=== PATIENT | female | born 1970 | race Caucasian/White ===

== ENCOUNTER → 2016-05-26 | Outpatient (CLI) | payer BC ==
--- NOTE | 2016-05-27 07:55 | MM ---
Reason for exam: screening (asymptomatic). Last mammogram was performed 1 year ago. History: Patient is nulliparous. Taking hormonal contraceptives for 23 years beginning at age 20. Physical Findings: A clinical breast exam by your physician is recommended on an annual basis and results should be correlated with mammographic findings. MG 3D Screening Mammo W/Cad Bilateral CC and MLO view(s) were taken. Prior study comparison: May 25, 2015, bilateral MG 3d screening mammo w/cad. May 22, 2014, bilateral MG screening mammo w CAD. The breast tissue is heterogeneously dense. This may lower the sensitivity of mammography. No significant changes when compared with prior studies. ASSESSMENT: Benign, BI-RAD 2 RECOMMENDATION: Routine screening mammogram of both breasts in 1 year.
== END | disposition home or self-care (01) ==
LOC: RADMAMWWP 06:50
PROVIDERS: ATTEND Obstetrics & Gynecology
DX: Z12.31 Encounter for screening mammogram for malignant neoplasm of breast (principal)
CPT/HCPCS: 77063; G0202

== ENCOUNTER → 2017-01-18 | Outpatient (CLI) | payer BC ==
[2017-01-18 08:16] LABS: ALT 28 U/L (9-52); AST 20 U/L (14-36); Alkaline Phosphatase 63 U/L (38-126); Blood Urea Nitrogen 13 mg/dL (7-17); Calcium 9.5 mg/dL (8.4-10.2); Carbon Dioxide 24 mmol/L (22-30); Cholesterol 124 mg/dL (<200); Glucose 85 mg/dL (74-99); HDL Cholesterol 44 mg/dL (40-60); Non-African American GFR(MDRD) 59 (>60 ml/min/1.73 sqM); Potassium 4.2 mmol/L (3.5-5.1); Sodium 140 mmol/L (137-145); Total Bilirubin 0.5 mg/dL (0.2-1.3); Total Protein 7.2 g/dL (6.3-8.2)
[2017-01-18 08:27] LABS: Anion Gap 11 mmol/L; Chloride 105 mmol/L (98-107)
== END | disposition home or self-care (01) ==
LOC: LABWHC1 07:21
PROVIDERS: ATTEND Internal Medicine Interventional Cardiology
DX: E78.2 Mixed hyperlipidemia (principal)
CPT/HCPCS: 36415; 80053; 80061

== ENCOUNTER → 2017-05-29 | Outpatient (CLI) | payer BC ==
--- NOTE | 2017-05-30 11:33 | MM ---
Reason for exam: screening (asymptomatic). Last mammogram was performed 1 year ago. History: Patient is nulliparous. Taking hormonal contraceptives for 24 years beginning at age 20. Physical Findings: A clinical breast exam by your physician is recommended on an annual basis and results should be correlated with mammographic findings. MG 3D Screening Mammo W/Cad Bilateral CC and MLO view(s) were taken. Prior study comparison: May 26, 2016, bilateral MG 3d screening mammo w/cad. May 25, 2015, bilateral MG 3d screening mammo w/cad. The breast tissue is heterogeneously dense. This may lower the sensitivity of mammography. There is chronic nodularity in the right breast. There is no dominant lesion. No significant changes when compared with prior studies. ASSESSMENT: Benign, BI-RAD 2 RECOMMENDATION: Routine screening mammogram of both breasts in 1 year.
== END | disposition home or self-care (01) ==
LOC: RADMAMWWP 06:59
PROVIDERS: ATTEND Obstetrics & Gynecology
DX: Z12.31 Encounter for screening mammogram for malignant neoplasm of breast (principal)
CPT/HCPCS: 77063; 77067

== ENCOUNTER → 2018-03-20 | Outpatient (CLI) | payer BC ==
[2018-03-20 08:24] LABS: HGB 12.4 gm/dL (11.4-16.0); MCH 34.3 pg (25.0-35.0); MCHC 33.5 g/dL (31.0-37.0); MCV 102.2 fL (80.0-100.0); Macrocytosis Slight; Mean Platelet Volume 6.7; Platelet Count 246 k/uL (150-450); RBC 3.62 m/uL (3.80-5.40); RDW 13.4 % (11.5-15.5); WBC 6.3 k/uL (3.8-10.6)
[2018-03-20 16:56] LABS: LDL Cholesterol,Calculated 65.8 mg/dL (0.0-131.0); VLDL Calculation 25.2 mg/dL (5.00-40.00)
== END | disposition home or self-care (01) ==
LOC: LABWHC1 07:46
PROVIDERS: ATTEND Obstetrics & Gynecology
DX: Z13.220 Encounter for screening for lipoid disorders (principal); Z13.1 Encounter for screening for diabetes mellitus
CPT/HCPCS: 36415; 80061; 82947; 85027

== ENCOUNTER → 2018-05-31 | Outpatient (CLI) | payer BC ==
--- NOTE | 2018-06-01 08:14 | MM ---
Reason for exam: screening (asymptomatic). Last mammogram was performed 1 year ago. History: Patient is nulliparous. Taking hormonal contraceptives for 24 years beginning at age 20. Physical Findings: A clinical breast exam by your physician is recommended on an annual basis and results should be correlated with mammographic findings. MG 3D Screening Mammo W/Cad Bilateral CC and MLO view(s) were taken. Prior study comparison: May 29, 2017, bilateral MG 3d screening mammo w/cad. May 26, 2016, bilateral MG 3d screening mammo w/cad. No significant changes when compared with prior studies. ASSESSMENT: Benign, BI-RAD 2 RECOMMENDATION: Routine screening mammogram of both breasts in 1 year.
== END | disposition home or self-care (01) ==
LOC: RADMAMWWP 06:49
PROVIDERS: ATTEND Obstetrics & Gynecology
DX: Z12.31 Encounter for screening mammogram for malignant neoplasm of breast (principal)
CPT/HCPCS: 77063; 77067

== ENCOUNTER → 2019-04-09 | Outpatient (CLI) | payer BC ==
[2019-04-09 11:03] LABS: HCT 35.2 % (34.0-46.0); HGB 11.8 gm/dL (11.4-16.0); MCH 33.6 pg (25.0-35.0); MCHC 33.5 g/dL (31.0-37.0); MCV 100.6 fL (80.0-100.0); Mean Platelet Volume 7.5; Platelet Count 206 k/uL (150-450); RDW 13.2 % (11.5-15.5); WBC 7.6 k/uL (3.8-10.6)
[2019-04-09 16:31] LABS: African American GFR (CKD) 76.6 (60.0-200.0); Albumin 4.4 g/dL (3.80-4.90); Albumin/Globulin Ratio 2.32 (1.60-3.17); Anion Gap 6.3 mmol/L (4.00-12.00); Carbon Dioxide 25.7 mmol/L (21.6-31.8); Chol/HDL Ratio 3.02; Globulin 1.9 g/dL (1.6-3.3); LDL Cholesterol,Calculated 67.2 mg/dL (0.0-131.0); Non-African American GFR(CKD) 66.1 (60.0-200.0); Potassium 3.8 mmol/L (3.5-5.5); Total Bilirubin 0.4 mg/dL (0.3-1.2); Total Protein 6.3 g/dL (6.2-8.2); VLDL Calculation 23.8 mg/dL (5.00-40.00)
== END | disposition home or self-care (01) ==
LOC: LABWHC1 10:15
PROVIDERS: ATTEND Internal Medicine Interventional Cardiology
DX: I10 Essential (primary) hypertension (principal); Z13.220 Encounter for screening for lipoid disorders
CPT/HCPCS: 36415; 80053; 80061; 85027

== ENCOUNTER → 2019-09-11 | Outpatient (CLI) | payer BC ==
--- NOTE | 2019-09-12 09:39 | MM ---
Reason for exam: screening (asymptomatic). Last mammogram was performed 1 year and 3 months ago. History: Patient is nulliparous. Taking hormonal contraceptives for 24 years beginning at age 20. Physical Findings: A clinical breast exam by your physician is recommended on an annual basis and results should be correlated with mammographic findings. MG 3D Screening Mammo W/Cad Bilateral CC and MLO view(s) were taken. Prior study comparison: May 31, 2018, bilateral MG 3d screening mammo w/cad. May 29, 2017, bilateral MG 3d screening mammo w/cad. The breast tissue is heterogeneously dense. This may lower the sensitivity of mammography. No suspicious abnormality. No significant changes when compared with prior studies. ASSESSMENT: Negative, BI-RAD 1 RECOMMENDATION: Routine screening mammogram of both breasts in 1 year.
== END | disposition home or self-care (01) ==
LOC: RADMAMWWP 16:13
PROVIDERS: ATTEND Obstetrics & Gynecology
DX: Z12.31 Encounter for screening mammogram for malignant neoplasm of breast (principal)
CPT/HCPCS: 77063; 77067

== ENCOUNTER → 2020-09-16 | Outpatient (CLI) | payer BC ==
[2020-09-16 13:23] LABS: HCT 22.1 % (37.2-46.3); HGB 7.2 g/dL (12.0-15.0); MCHC 32.6 g/dL (32.0-37.0); MCV 107.3 fL (80.0-97.0); Platelet Count 45 X 10*3/uL (140-440); RBC 2.06 X 10*6/uL (4.10-5.20); RDW 16.6 % (11.5-14.5); WBC 8.42 X 10*3/uL (4.50-10.00)
[2020-09-17 03:19] LABS: T4, Free (Free Thyroxine) 1.1 ng/dL (0.80-1.80)
[2020-09-17 04:03] LABS: African American GFR (CKD) 86.4 (60.0-200.0); Albumin 4.4 g/dL (3.80-4.90); Albumin/Globulin Ratio 1.91 (1.60-3.17); Anion Gap 7.5 mmol/L (4.00-12.00); BUN/Creat Ratio 16.67 Ratio (12.00-20.00); Calcium 9.3 mg/dL (8.7-10.3); Carbon Dioxide 25.5 mmol/L (21.6-31.8); Chol/HDL Ratio 3.33; Globulin 2.3 g/dL (1.6-3.3); LDL Cholesterol,Calculated 63.6 mg/dL (0.0-131.0); Non-African American GFR(CKD) 74.6 (60.0-200.0); Potassium 3.9 mmol/L (3.5-5.5); Total Bilirubin 0.6 mg/dL (0.3-1.2); Total Protein 6.7 g/dL (6.2-8.2); VLDL Calculation 20.4 mg/dL (5.00-40.00)
== END | disposition home or self-care (01) ==
LOC: LABWHC1 07:22
PROVIDERS: ATTEND Obstetrics & Gynecology
DX: Z13.220 Encounter for screening for lipoid disorders (principal)
CPT/HCPCS: 36415; 80053; 80061; 84439; 84443; 84479; 85027

== ENCOUNTER → 2020-09-22 | Outpatient (CLI) | payer BC ==
--- NOTE | 2020-09-22 11:40 | BD ---
EXAMINATION TYPE: Axial Bone Density DATE OF EXAM: 09/22/2020 COMPARISON: NONE CLINICAL HISTORY: Height: 5 FT 6 1/2 IN Weight: 135 FRAX RISK QUESTIONS: Alcohol (3 or more units per day): NO Family History (Parent hip fracture): NO Glucocorticoids (More than 3mos): NO (Ex: prednisone, prednisolone, methylprednisolone, dexamethasone, and hydrocortisone). History of Fracture in Adulthood: NO Secondary Osteoporosis: 1. Type 1 Diabetes: NO 2. Hyperthyroidism: NO 3. Menopause before 45: NO 4. Malnutrition: NO 5. Chronic liver disease: NO Rheumatoid Arthritis: NO Current Tobacco Use: NO RISK FACTORS HISTORY OF: Surgery to Spine/Hip(right/left)/Wrist (right/left): NO Family History of Osteoporosis: NO Active: YES Diet low in dairy products/other sources of calcium: NO Postmenopausal woman: LMP 05.23.21 If Premenopausal, do you have irregular periods: NO Take estrogen and/or progesterone medications: NO Lost more than 2 inches in height since high school: NO MEDICATIONS: Additional Medications: AMLODIPINE, CLARITIN,VIT D Additional History: EXAM MEASUREMENTS: Bone mineral densitometry was performed using the [employer] System. Bone mineral density as measured about the Lumbar spine is: ----- L1-L4(G/cm2): 1.398 T Score Values are as follows: ----- L2: 2.3 ----- L3: 2.6 ----- L4: 1.1 ----- L1-L4: 1.8 BASELINE Bone mineral density about the R hip (g/cm2): 1.040 Bone mineral density about the L hip (g/cm2): 1.062 T Score values are as follows: -----R Neck: 0.0 -----L Neck: 0.2 -----R Total: 0.9 -----L Total: 1.1 BASELINE IMPRESSION: Normal (Values between +1 and -1 indicate normal bone mass). Consider repeating this study in 5 year s or sooner if there is some new clinical indication. NOTE: T-SCORE=SD OF THE YOUNG ADULT MEAN.
--- NOTE | 2020-09-23 13:45 | MM ---
Reason for exam: screening (asymptomatic). Last mammogram was performed 1 year ago. History: Patient is nulliparous. Took hormonal contraceptives for 30 years beginning at age 20. Physical Findings: A clinical breast exam by your physician is recommended on an annual basis and results should be correlated with mammographic findings. MG 3D Screening Mammo W/Cad Bilateral CC and MLO view(s) were taken. Prior study comparison: September 11, 2019, bilateral MG 3d screening mammo w/cad. May 31, 2018, bilateral MG 3d screening mammo w/cad. The breast tissue is heterogeneously dense. This may lower the sensitivity of mammography. There is no discrete abnormality. ASSESSMENT: Negative, BI-RAD 1 RECOMMENDATION: Routine screening mammogram of both breasts in 1 year.
== END | disposition home or self-care (01) ==
LOC: RADMAMWWP 06:58
PROVIDERS: ATTEND Obstetrics & Gynecology
DX: Z12.31 Encounter for screening mammogram for malignant neoplasm of breast (principal); Z13.820 Encounter for screening for osteoporosis
CPT/HCPCS: 77063; 77067; 77080

== ENCOUNTER 2020-09-29 06:09 | Day surgery (SDC) | payer BC ==
[2020-09-28 09:42] VITALS: BMI 21.1
[~2020-09-29 06:09] MED LIST: LACTATED RINGERS 1,000 ML IV SCH; LIDOCAINE 1% (10MG/ML) FOR IV START INTRADERMA PRN
[2020-09-29] MEDS ORDERED: ONDANSETRON 4 MG/2 ML VIAL ONE (06:51)
[2020-09-29] MEDS ORDERED: PROPOFOL 10 MG/ML 20 ML VIAL IV ONE (07:06)
[2020-09-29 07:31] VITALS: RESP 16
[2020-09-29 07:40] VITALS: BP 107/59
[2020-09-29 07:57] LABS: Anisocytosis Moderate; HCT 28.9 % (34.0-46.0); HGB 9.4 gm/dL (11.4-16.0); MCH 31.6 pg (25.0-35.0); MCHC 32.5 g/dL (31.0-37.0); MCV 97.2 fL (80.0-100.0); Macrocytosis Slight; Mean Platelet Volume 9.5; Platelet Count 44 k/uL (150-450); RBC 2.98 m/uL (3.80-5.40); RDW 20.1 % (11.5-15.5); Reticulocyte % 2.5 % (0.5-2.0); WBC 7.5 k/uL (3.8-10.6)
[2020-09-29 08:39] LABS: Band Neutrophils % 2 %; Metamyelocytes # (M) 0.08 k/uL (0); Metamyelocytes % 1 %; Neutrophils % (M) 27 %; Nucleated Red Blood Cells 0 /100 WBC (0-0); Total Cells Counted 200
--- NOTE | 2020-09-29 11:47 | PCN ---
PROCEDURE NOTE DATE OF PROCEDURE: 09/29/2020. PREOP DIAGNOSIS: Pancytopenia. POSTOP DIAGNOSIS: Pancytopenia. PROCEDURE: Bone marrow aspirate and biopsy site right iliac crest. ANESTHESIA: Local with IV systemic sedation. DETAILS: Utilizing sterile technique, the skin overlying the right iliac crest was prepared with Betadine and alcohol. After adequate sterile draping and local anesthesia, a size 11-4 inches Jamshidi needle was utilized to access the periosteum with ease. A total of 15 mL of aspirate as well as 4 cm bone core biopsies were obtained. The patient tolerated the procedure very well. There was no immediate procedure related complication. TOTAL BLOOD LOSS: Less than 1 mL. Results pending. MMODL / IJN: [id number] /
== END 2020-09-29 08:00 | disposition home or self-care (01) ==
LOC: OR 06:09
PROVIDERS: ATTEND Internal Medicine Hematology & Oncology
DX: D61.818 Other pancytopenia (principal); D53.9 Nutritional anemia, unspecified; Z79.899 Other long term (current) drug therapy; Z88.1 Allergy status to other antibiotic agents; Z88.0 Allergy status to penicillin; Z88.2 Allergy status to sulfonamides; I10 Essential (primary) hypertension; Z98.890 Other specified postprocedural states; Z86.19 Personal history of other infectious and parasitic diseases
CPT/HCPCS: 81025; 85025; 85045; 38222; J2405; J2704

== ENCOUNTER → 2020-10-10 | Outpatient (CLI) | payer BC ==
--- NOTE | 2020-10-12 10:21 | PE ---
EXAMINATION TYPE: PET CT fusion skull to thigh DATE OF EXAM: 10/10/2020 CLINICAL HISTORY: 50-year-old female C85.85, bone marrow biopsy on 09/29/2020 with diagnosis of lympho ma and 10/02/2020. Initial staging. TECHNIQUE: Following the intravenous administration of 11.32 mCi F-18 FDG mCi of F-18 FDG, whole bod y images are performed from the skull base to the midthigh. Images are reviewed on the computer in t he coronal, axial, and sagittal planes. Reconstructed rotating images are created on independent wor kstation and reviewed on the computer. A localization and attenuation correction CT is performed in conjunction with the PET scan. Glucose level: 98 mg/dL Injection site: Right AC COMPARISON: None. FINDINGS: PET: Very mild increased uptake within the parotid and submandibular glands, max SUV 2.8. Otherwise, ph ysiologic FDG uptake within the neck. 4 mm anterior right upper lobe pulmonary nodule, axial image 72. This is too small for adequate filipe cterization. Otherwise, physiologic FDG uptake within the chest. Average liver SUV 1.7 Otherwise, physiologic FDG uptake within the abdomen. Round masslike area measuring 6.7 cm in the posterior pelvis, probably a retroverted uterus, only mil d uptake here, max SUV 2.0. Questionable 2.0 cm round hypodense area right adnexa. Either a fluid-filled loop of bowel or related to the right ovary. Max SUV 4.8. 1.5 cm lymph node left external iliac chain, max SUV 4.5. Mild generalized increased marrow uptake, for example, max SUV of 2.6 and 2.5 in the pelvis and proxi mal femurs, respectively. ATTENUATION CORRECTION CT: Visualized paranasal sinuses and mastoid air cells appear clear. Orotracheal colon is clear. No cervi adithya lymphadenopathy by size criteria. Heart upper limits of normal size without pericardial effusion. Aorta normal caliber with a bovine co nfiguration to the aortic arch. No thoracic lymphadenopathy by CT size criteria. Mild diffuse bronchi al wall thickening bronchitis or chronic asthma. Mild dependent atelectasis. Minimal biapical pleural parenchymal scarring. Spleen measures 11.0 cm on axial series. No dilated small bowel, free fluid, or free air. No mesenter ic or retroperitoneal lymphadenopathy. Normal appendix. Mild to moderate stool burden. No pericolonic inflammatory change. No osseous destructive process. IMPRESSION: 1. An enlarged 1.5 cm left external iliac chain lymph node shows moderate uptake, max SUV 4.5. 2. A small focal area of moderate uptake in the right adnexa could be associated with the right ovary or a short segment of fluid-filled small bowel. Consider pelvic ultrasound to exclude any underlying lesion within the right ovary. 3. A rounded masslike area measuring 6.7 cm in the posterior pelvis, probably a retroverted uterus. N o significant uptake here. The pelvic ultrasound can better characterize this finding as well. 4. Very mild generalized increased marrow uptake, max SUV 2.6 (background liver uptake being 1.7). Ot herwise, no other focal abnormal uptake is identified. 5. A 4 mm nonspecific right upper lobe pulmonary nodule can be reassessed at a 6-12 month follow-up C T.
== END | disposition home or self-care (01) ==
LOC: RADPETMAIN 08:57
PROVIDERS: ATTEND Internal Medicine Hematology & Oncology
DX: C85.85 Other specified types of non-Hodgkin lymphoma, lymph nodes of inguinal region and lower limb (principal); R91.1 Solitary pulmonary nodule
CPT/HCPCS: 78815; A9552

== ENCOUNTER 2021-01-18 20:44 | Observation (INO) | payer BC ==
--- NOTE | 2021-01-18 23:16 | XR ---
EXAMINATION TYPE: XR KUB DATE OF EXAM: 01/18/2021 COMPARISON: NONE HISTORY: Abdominal pain TECHNIQUE: 2 views upright FINDINGS: Bowel gas pattern is normal. There is no sign of intestinal obstruction or pneumoperitoneum . Fecal pattern is normal. There is no sign of a mass. Lung bases are clear. There are no pathologic calcifications over the kidneys. IMPRESSION: Nonacute abdomen.
[2021-01-18 23:37] LABS: Basophils % (A) 0 %; Eosinophils # (A) 0.2 k/uL (0-0.7); Eosinophils % (A) 3 %; Hyperchromasia Slight; Lymphocytes # (A) 0.1 k/uL (1.0-4.8); Lymphocytes % (A) 1 %; MCH 37.1 pg (25.0-35.0); MCV 103.1 fL (80.0-100.0); Macrocytosis Slight; Mean Platelet Volume 7.8; Monocytes # (A) 0.4 k/uL (0-1.0); Monocytes % (A) 5 %; Neutrophils # (A) 7.5 k/uL (1.3-7.7); Neutrophils % (A) 91 %; Platelet Count 128 k/uL (150-450); Poikilocytosis Slight; RBC 3.78 m/uL (3.80-5.40); RDW 13.7 % (11.5-15.5); WBC 8.2 k/uL (3.8-10.6)
[2021-01-18] MEDS ORDERED: SODIUM CHLORIDE 0.9% 1,000 ML IV ONE (23:37)
[2021-01-18] MEDS ORDERED: MORPHINE SULFATE 4 MG/ML SYRINGE IV STA (23:37)
[2021-01-18 23:41] LABS: Appearance,Urine Clear (Clear); Bilirubin,Urine Negative (Negative); Blood,Urine Negative (Negative); Color,Urine Yellow; Glucose,Urine (UA) Negative (Negative); Ketones,Urine Negative (Negative); Leukocyte Esterase,Urine Negative (Negative); Nitrite,Urine Negative (Negative); Protein,Urine Negative (Negative); Specific Gravity,Urine 1.016 (1.001-1.035); Urobilinogen,Urine <2.0 mg/dL (<2.0)
[2021-01-18 23:50] LABS: ALT 17 U/L (4-34); AST 23 U/L (14-36); African American GFR (CKD) >90 (>60 ml/min/1.73 sqM); Albumin 5.1 g/dL (3.5-5.0); Alkaline Phosphatase 77 U/L (38-126); Amylase 118 U/L (30-110); Anion Gap 11 mmol/L; Blood Urea Nitrogen 14 mg/dL (7-17); Calcium 10.1 mg/dL (8.4-10.2); Carbon Dioxide 25 mmol/L (22-30); Chloride 97 mmol/L (98-107); Glucose 110 mg/dL (74-99); Lipase 92 U/L (23-300); Non-African American GFR(CKD) 89 (>60 ml/min/1.73 sqM); Potassium 4.1 mmol/L (3.5-5.1); Sodium 133 mmol/L (137-145); Total Bilirubin 1.2 mg/dL (0.2-1.3); Total Protein 7.7 g/dL (6.3-8.2)
--- NOTE | 2021-01-19 01:29 | CT ---
EXAMINATION TYPE: CT abdomen pelvis wo con DATE OF EXAM: 01/19/2021 COMPARISON: 10/10/2020 HISTORY: medial abd pain with diarrhea. pt has non-bacon lymphoma CT DLP: 387.3 mGycm Automated exposure control for dose reduction was used. Images obtained from the diaphragm to the floor the pelvis with no contrast. Lung bases show mild subsegmental atelectasis. Heart size is normal. There is no pericardial effusion . Liver and spleen are intact. The bile ducts are not dilated. There is no evidence of pancreatic mass. Gallbladder appears normal. There is no adrenal mass. Kidneys have normal size and contour. There is no hydronephrosis. Ureters a re not dilated. There is no retroperitoneal adenopathy. Bladder distends smoothly. There is no inguin al hernia. There is retroverted uterus noted. There is no free fluid in the pelvis. There is fat stranding in the right lower quadrant with thickened fluid-filled appendix. Appendix mariana sures up to 12 mm. There is small amount of fluid in the right paracolic gutter. There appendicoliths . There is no ascites or free air. There is no bowel obstruction. There is no mesenteric edema. The lumbar vertebra have normal alignment. There is no compression fracture. Posterior elements are i ntact. Bony pelvis is intact. Hip joints are intact. IMPRESSION: Inflammatory changes in the right lower quadrant with thickened posterior appendix related to acute a ppendicitis. There are appendicoliths. Inflammatory changes are new compared to old exam.
[2021-01-19] MEDS ORDERED: MORPHINE SULFATE 4 MG/ML SYRINGE IV STA (02:04)
[2021-01-19] MEDS ORDERED: ONDANSETRON 4 MG/2 ML VIAL IVP STA (02:04)
[2021-01-19] MEDS ORDERED: CEFEPIME 2 GM in SODIUM CHLORIDE 0.9% 100 ML IVPB STA (02:05)
[2021-01-19] MEDS ORDERED: NALOXONE 0.4 MG/ML 1 ML VIAL IV PRN (02:28)
[2021-01-19] MEDS: SODIUM CHLORIDE 0.9% 1,000 ML IV SCH ×4 (03:14→20:52)
[2021-01-19] MEDS: MORPHINE SULFATE 4 MG/ML SYRINGE IV PRN ×3 (06:59→17:50)
[2021-01-19] MEDS: ONDANSETRON 4 MG/2 ML VIAL IVP PRN ×2 (07:01→14:34)
[2021-01-19] MEDS: PANTOPRAZOLE 40 MG/10 ML VIAL IV SCH (07:57)
[2021-01-19] MEDS: LEVOFLOXACIN 500MG-D5W PMX 500 MG in DEXTROSE/WATER 1 100ML.BAG IVPB SCH (10:19)
[2021-01-19] MEDS: metroNIDAZOLE-NS PMX 500 MG in SALINE 1 100ML.BAG IVPB SCH ×2 (11:27→18:22)
--- NOTE | 2021-01-19 13:01 | P.GSHP ---
<Smita Perez - Last Filed: 01/19/21 12:56> History of Present Illness H&P Date: 01/19/21 CHIEF COMPLAINT: Abdominal pain HISTORY OF PRESENT ILLNESS: This is a 51-year-old female with a known history of non-Hodgkin's lymphoma and hypertension. Her last chemotherapy treatment for her non-Hodgkin's was last week. Patient presents to the hospital with complaints of mid abdominal pain and right lower quadrant pain that started yesterday afternoon after lunch. She she did vomit yesterday as well had an episode of diarrhea. She's been having chills and sweats. Denies any fever. She had a computed tomography scan of the abdomen and pelvis completed showing inflammatory changes in the right lower quadrant with thickened posterior appendix related to acute appendicitis. There are appendicoliths. Inflammatory changes are new compared to old exam. Patient admitted to the hospital for acute appendicitis. PAST MEDICAL HISTORY: See list. PAST SURGICAL HISTORY: Ovarian cyst removal MEDICATIONS: See list. ALLERGIES: See list. SOCIAL HISTORY: No illicit drug use. REVIEW OF SYSTEMS: CONSTITUTIONAL: Denies fever or chills. HEENT: Denies blurred vision, vision changes, or eye pain. Denies hemoptysis CARDIOVASCULAR: Denies chest pain or pressure. RESPIRATORY: No shortness of breath. GASTROINTESTINAL: See HPI for pertinent findings HEMATOLOGIC: Denies bleeding disorders. GENITOURINARY: Denies any blood in urine or increased urinary frequency. SKIN: Denies pruitis. Denies rash. PHYSICAL EXAM: VITAL SIGNS: Reviewed GENERAL: Well-developed in no acute distress. HEENT: No sclera icterus. Extraocular movements grossly intact. Moist buccal mucosa. Head is atraumatic, normocephalic. No nasal drainage. ABDOMEN: Soft. Nondistended. There is palpation of the mid abdomen and right lower quadrant NEUROLOGIC: Alert and oriented. Cranial nerves II through XII grossly intact. LABORATORY DATA: WBC is 8.2 hemoglobin 14 platelets 128 Sodium 133 potassium 4.1 chloride 97 BUN 14 creatinine 0.78 glucose 110 LFTs normal Lipase normal Urinalysis negative for infection Urine HCG not detected COVID-19 not detected IMAGING: CAT scans findings as stated above ASSESSMENT: 1. Acute appendicitis PLAN: -Patient scheduled for laparoscopic appendectomy today with Dr. Kelly -Keep patient nothing by mouth -Continue IV antibiotics -Continue IV fluids -Continue pain medication as needed -Continue antiemetics as needed Physician Welding Specialist note has been reviewed by physician. Signing provider agrees with the documented findings, assessment, and plan of care. Past Medical History Past Medical History: Cancer, Hypertension Additional Past Medical History / Comment(s): received both moderna vaccines,low red blood cells and platelets-having blood transfusion on 09-28-20. NON HODKINS LYMPHOMA History of Any Multi-Drug Resistant Organisms: None Reported Additional Past Surgical History / Comment(s): ovarian cyst removal. BONE MARROW BIOPSY Past Anesthesia/Blood Transfusion Reactions: Postoperative Nausea & Vomiting (PONV) Past Psychological History: No Psychological Hx Reported Smoking Status: Never smoker Past Alcohol Use History: Occasional Past Drug Use History: None Reported - Past Family History Mother Family Medical History: No Reported History, Hypertension Father Family Medical History: Hypertension Medications and Allergies Home Medications Medication Instructions Recorded Confirmed Type amLODIPine [Norvasc] 5 mg PO DAILY 06/28/14 01/19/21 History Cholecalciferol [Vitamin D3 (25 25 mcg PO Q3D 09/28/20 01/19/21 History Mcg = 1000 Iu)] Prochlorperazine [Compazine] 5 mg PO Q8HR PRN 01/19/21 01/19/21 History ondansetron HCL [Zofran] 8 mg PO Q8H PRN 01/19/21 01/19/21 History Allergies Allergy/AdvReac Type Severity Reaction Status Date / Time clarithromycin [From Biaxin] Allergy Swelling Verified 01/19/21 07:41 Penicillins Allergy Swelling Verified 01/19/21 07:41 Sulfa (Sulfonamide Allergy Unknown Verified 01/19/21 07:41 Antibiotics) Childhood Surgical - Exam Vital Signs Temp Pulse Resp BP Pulse Ox 98.1 F 74 18 130/83 100 01/18/21 21:47 01/18/21 21:47 01/18/21 21:47 01/18/21 21:47 01/18/21 21:47 Results - Labs 01/18/21 23:21 01/18/21 23:21 Abnormal Lab Results - Last 24 Hours (Table) 01/18/21 01/18/21 Range/Units 23:21 23:21 RBC 3.78 L (3.80-5.40) m/uL MCV 103.1 H (80.0-100.0) fL MCH 37.1 H (25.0-35.0) pg Plt Count 128 L (150-450) k/uL Lymphocytes # 0.1 L (1.0-4.8) k/uL Sodium 133 L (137-145) mmol/L Chloride 97 L (98-107) mmol/L Glucose 110 H (74-99) mg/dL Albumin 5.1 H (3.5-5.0) g/dL Amylase 118 H (30-110) U/L Diabetes panel 01/18/21 Range/Units 23:21 Sodium 133 L (137-145) mmol/L Potassium 4.1 (3.5-5.1) mmol/L Chloride 97 L (98-107) mmol/L Carbon Dioxide 25 (22-30) mmol/L BUN 14 (7-17) mg/dL Creatinine 0.78 (0.52-1.04) mg/dL Glucose 110 H (74-99) mg/dL Calcium 10.1 (8.4-10.2) mg/dL AST 23 (14-36) U/L ALT 17 (4-34) U/L Alkaline Phosphatase 77 (38-126) U/L Total Protein 7.7 (6.3-8.2) g/dL Albumin 5.1 H (3.5-5.0) g/dL Calcium panel 01/18/21 Range/Units 23:21 Calcium 10.1 (8.4-10.2) mg/dL Albumin 5.1 H (3.5-5.0) g/dL Pituitary panel 01/18/21 Range/Units 23:21 Sodium 133 L (137-145) mmol/L Potassium 4.1 (3.5-5.1) mmol/L Chloride 97 L (98-107) mmol/L Carbon Dioxide 25 (22-30) mmol/L BUN 14 (7-17) mg/dL Creatinine 0.78 (0.52-1.04) mg/dL Glucose 110 H (74-99) mg/dL Calcium 10.1 (8.4-10.2) mg/dL Adrenal panel 01/18/21 Range/Units 23:21 Sodium 133 L (137-145) mmol/L Potassium 4.1 (3.5-5.1) mmol/L Chloride 97 L (98-107) mmol/L Carbon Dioxide 25 (22-30) mmol/L BUN 14 (7-17) mg/dL Creatinine 0.78 (0.52-1.04) mg/dL Glucose 110 H (74-99) mg/dL Calcium 10.1 (8.4-10.2) mg/dL Total Bilirubin 1.2 (0.2-1.3) mg/dL AST 23 (14-36) U/L ALT 17 (4-34) U/L Alkaline Phosphatase 77 (38-126) U/L Total Protein 7.7 (6.3-8.2) g/dL Albumin 5.1 H (3.5-5.0) g/dL <Vladimir Kelly - Last Filed: 01/19/21 13:02> History of Present Illness As above. Patient with CAT scan findings and abdominal exam consistent with a cute appendicitis of moderate degree. Patient currently undergoing chemotherapy for lymphoma. Case was reviewed with her oncologist. We'll proceed with laparoscopic, possible open appendectomy at this time. Risks of bleeding, infection, abscess, bladder bowel and ureteral injury, hernia, conversion to an open procedure reviewed. She understands and wishes to proceed. Surgical - Exam Vital Signs Temp Pulse Resp BP Pulse Ox 98.1 F 74 18 130/83 100 01/18/21 21:47 01/18/21 21:47 01/18/21 21:47 01/18/21 21:47 01/18/21 21:47 Results - Labs 01/18/21 23:21 01/18/21 23:21 Abnormal Lab Results - Last 24 Hours (Table) 01/18/21 01/18/21 Range/Units 23:21 23:21 RBC 3.78 L (3.80-5.40) m/uL MCV 103.1 H (80.0-100.0) fL MCH 37.1 H (25.0-35.0) pg Plt Count 128 L (150-450) k/uL Lymphocytes # 0.1 L (1.0-4.8) k/uL Sodium 133 L (137-145) mmol/L Chloride 97 L (98-107) mmol/L Glucose 110 H (74-99) mg/dL Albumin 5.1 H (3.5-5.0) g/dL Amylase 118 H (30-110) U/L Diabetes panel 01/18/21 Range/Units 23:21 Sodium 133 L (137-145) mmol/L Potassium 4.1 (3.5-5.1) mmol/L Chloride 97 L (98-107) mmol/L Carbon Dioxide 25 (22-30) mmol/L BUN 14 (7-17) mg/dL Creatinine 0.78 (0.52-1.04) mg/dL Glucose 110 H (74-99) mg/dL Calcium 10.1 (8.4-10.2) mg/dL AST 23 (14-36) U/L ALT 17 (4-34) U/L Alkaline Phosphatase 77 (38-126) U/L Total Protein 7.7 (6.3-8.2) g/dL Albumin 5.1 H (3.5-5.0) g/dL Calcium panel 01/18/21 Range/Units 23:21 Calcium 10.1 (8.4-10.2) mg/dL Albumin 5.1 H (3.5-5.0) g/dL Pituitary panel 01/18/21 Range/Units 23:21 Sodium 133 L (137-145) mmol/L Potassium 4.1 (3.5-5.1) mmol/L Chloride 97 L (98-107) mmol/L Carbon Dioxide 25 (22-30) mmol/L BUN 14 (7-17) mg/dL Creatinine 0.78 (0.52-1.04) mg/dL Glucose 110 H (74-99) mg/dL Calcium 10.1 (8.4-10.2) mg/dL Adrenal panel 01/18/21 Range/Units 23:21 Sodium 133 L (137-145) mmol/L Potassium 4.1 (3.5-5.1) mmol/L Chloride 97 L (98-107) mmol/L Carbon Dioxide 25 (22-30) mmol/L BUN 14 (7-17) mg/dL Creatinine 0.78 (0.52-1.04) mg/dL Glucose 110 H (74-99) mg/dL Calcium 10.1 (8.4-10.2) mg/dL Total Bilirubin 1.2 (0.2-1.3) mg/dL AST 23 (14-36) U/L ALT 17 (4-34) U/L Alkaline Phosphatase 77 (38-126) U/L Total Protein 7.7 (6.3-8.2) g/dL Albumin 5.1 H (3.5-5.0) g/dL
[2021-01-19] MEDS ORDERED: IV FLUID CONTINUATION 700 ML IV ONE (14:54)
[2021-01-19] MEDS ORDERED: HEPARIN SODIUM,PORCINE/PF 5,000 UNIT/0.5 ML SYRINGE SQ ONE (15:24)
[2021-01-19] MEDS ORDERED: SCOPOLAMINE 1.5MG/72HR PATCH TRANSDERM ONE (15:26)
[2021-01-19] MEDS ORDERED: SUCCINYLCHOLINE CHLORIDE 100 MG/5 ML SYR IV ONE (15:32)
[2021-01-19] MEDS ORDERED: LIDOCAINE 1% INJ 10MG/ML (20 ML MDV) ONE (15:32)
[2021-01-19] MEDS ORDERED: fentaNYL (PF) 50 MCG/ML 2 ML AMP ONE (15:32)
[2021-01-19] MEDS ORDERED: MIDAZOLAM 2 MG/2 ML VIAL ONE (15:32)
[2021-01-19] MEDS ORDERED: HEPARIN SODIUM,PORCINE 5,000 UNIT/ML 1 ML VIAL ONE (15:32)
[2021-01-19] MEDS ORDERED: PHENYLEPHRINE-0.9% NACL SYG 1,000 MCG/10 ML SYRINGE ONE (15:32)
[2021-01-19] MEDS ORDERED: NEOSTIGMINE 1 MG/ML 10 ML VIAL ONE (15:32)
[2021-01-19] MEDS ORDERED: diphenhydrAMINE 50 MG/ML 1 ML VIAL ONE (15:32)
[2021-01-19] MEDS ORDERED: GLYCOPYRROLATE 0.2 MG/ML 2 ML VIAL ONE (15:32)
[2021-01-19] MEDS ORDERED: PROPOFOL 10 MG/ML 20 ML VIAL IV ONE (15:32)
[2021-01-19] MEDS ORDERED: ROCURONIUM 10 MG/ML (5 ML VIAL) IV ONE (15:32)
[2021-01-19] MEDS ORDERED: BUPIVACAINE (PF) 0.25% 30 ML VIAL SQ ONE (15:43)
[2021-01-19] MEDS ORDERED: LACTATED RINGERS 1,000 ML IV ONE (16:09)
--- NOTE | 2021-01-19 16:18 | P.CONS ---
History of Present Illness - Reason for Consult Consult date: 01/19/21 on chemo for lymphoma, possible surgery Requesting physician: Emmett Ames - Chief Complaint abd pain - History of Present Illness Pt is a very pleasant female pt of Dr. Sandra referred in September 2020 for severe anemia Hgb 7.2 with macrocytosis-107, and thrombocytopenia-45,000. Associated with exertional dyspnea. 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 She was then evaluated by Dr. Nuñez @ [facility] who agreed with diagnosis & recommendations of Bendamustine+Rituximab. Since starting treatment she has slowly started feeling better, counts improved, constitutional symptoms resolving, she has some energy back. S/P 4/6 cycles of ruxience and treanda, restaging PET is ordered for 01/29 at 9am. Admitted for RLQ pain, persistent, associated with poor appetite (but still feels like she could eat), no acute changes in bowel or bladder, no fever. CT AP concerning for acute appendicit is. Pending surgical evaluation. Review of Systems 10 point ROS is neg except as stated in HPI Past Medical History Past Medical History: Cancer, Hypertension Additional Past Medical History / Comment(s): received both moderna vaccines,low red blood cells and platelets-having blood transfusion on 09-28-20. NON HODKINS LYMPHOMA History of Any Multi-Drug Resistant Organisms: None Reported Additional Past Surgical History / Comment(s): ovarian cyst removal. BONE MARROW BIOPSY Past Anesthesia/Blood Transfusion Reactions: Postoperative Nausea & Vomiting (PONV) Past Psychological History: No Psychological Hx Reported Smoking Status: Never smoker Past Alcohol Use History: Occasional Past Drug Use History: None Reported - Past Family History Mother Family Medical History: No Reported History, Hypertension Father Family Medical History: Hypertension Medications and Allergies Home Medications Medication Instructions Recorded Confirmed Type amLODIPine [Norvasc] 5 mg PO DAILY 06/28/14 01/19/21 History Cholecalciferol [Vitamin D3 (25 25 mcg PO Q3D 09/28/20 01/19/21 History Mcg = 1000 Iu)] Prochlorperazine [Compazine] 5 mg PO Q8HR PRN 01/19/21 01/19/21 History ondansetron HCL [Zofran] 8 mg PO Q8H PRN 01/19/21 01/19/21 History Allergies Allergy/AdvReac Type Severity Reaction Status Date / Time clarithromycin [From Biaxin] Allergy Swelling Verified 01/19/21 14:50 Penicillins Allergy Swelling Verified 01/19/21 14:50 Sulfa (Sulfonamide Allergy Unknown Verified 01/19/21 14:50 Antibiotics) Childhood Physical Exam Vitals: Vital Signs Temp Pulse Pulse Resp BP BP Pulse Ox 01/19/21 07:46 98.4 F 63 16 112/67 100 01/19/21 03:54 98.1 F 64 16 122/75 100 01/19/21 03:28 97.4 F L 69 18 116/78 97 01/19/21 02:55 70 18 130/86 98 01/19/21 01:06 66 18 131/84 100 01/18/21 21:47 98.1 F 74 18 130/83 100 Intake and Output 01/18/21 01/19/21 01/19/21 22:59 06:59 14:59 Intake Total 360 Balance 360 Intake: Intake, IV Titration 360 Amount Cefepime 2 gm In Sodium 100 Chloride 0.9% 100 ml @ 200 mls/hr IVPB ONCE STA Rx#:[id number] Sodium Chloride 0.9% 1, 260 000 ml @ 130 mls/hr IV . Q7H42M FOR[facility]LY [facility], 1928–1983 Rx#:[id number] Other: Voiding Method Toilet # Voids 1 Weight 60.781 kg 60.526 kg - Constitutional General appearance: average body habitus, cooperative, no acute distress - EENT Eyes: anicteric sclerae, EOMI ENT: hearing grossly normal, normal oropharynx - Neck Neck: no lymphadenopathy - Respiratory Respiratory: bilateral: CTA - Cardiovascular Rhythm: regular Heart sounds: normal: S1, S2 Abnormal Heart Sounds: no systolic murmur, no diastolic murmur, no rub, no S3 Gallop, no S4 Gallop, no click, no other leg Peripheral Edema: bilateral: None - Gastrointestinal General gastrointestinal: no absent bowel sounds, no decreased bowel sounds, no distended, no hepatomegaly, no hyperactive bowel sounds, normal bowel sounds, no organomegaly, no rigid, no scaphoid, soft, no splenomegaly, tenderness, no umbilical hernia, no ventral hernia Localized gastrointestinal: tender: RLQ - Integumentary Integumentary: normal - Neurologic Neurologic: CNII-XII intact - Musculoskeletal Musculoskeletal: strength equal bilaterally - Psychiatric Psychiatric: A&O x's 3, appropriate affect, intact judgment & insight Results CBC & Chem 7: 01/18/21 23:21 01/18/21 23:21 Labs: Abnormal Lab Results - Last 24 Hours (Table) 01/18/21 01/18/21 Range/Units 23:21 23:21 RBC 3.78 L (3.80-5.40) m/uL MCV 103.1 H (80.0-100.0) fL MCH 37.1 H (25.0-35.0) pg Plt Count 128 L (150-450) k/uL Lymphocytes # 0.1 L (1.0-4.8) k/uL Sodium 133 L (137-145) mmol/L Chloride 97 L (98-107) mmol/L Glucose 110 H (74-99) mg/dL Albumin 5.1 H (3.5-5.0) g/dL Amylase 118 H (30-110) U/L Abdominal x-ray: report reviewed CT scan - abdomen: report reviewed CT scan - pelvis: report reviewed Assessment and Plan (1) NHL (non-Hodgkin's lymphoma) Narrative/Plan: Last treatment was 01/12 and 01/13. Pt has been doing better on treatment, counts better and physically improved. She has not received GCSF. Dr. Lowe reviewed with pt that after recent chemo it is always optimal to have 2-3 weeks between chemo and surgery. Pt has NOT received a VEGF therapy, her counts are safe range so, her risk of complications from type of treatment and/or low counts is significantly reduced. If pt is needing surgical intervention, with her current counts, she is ok from a Hem/Onc standpoint for surgery. Close monitoring of CBC. Current Visit: Yes Status: Chronic Priority: Medium Code(s): C85.90 - NON- HODGKIN LYMPHOMA, UNSPECIFIED, UNSPECIFIED SITE SNOMED Code(s): 597461856 Plan: Doctor attests: I performed a history and physical examination of this patient, developed impression and plan of care, discussed with dictator. I agree with dictators note, documented as a scribe.
[2021-01-19] MEDS ORDERED: ACETAMINOPHEN TAB 325 MG TAB PO PRN (16:41)
--- NOTE | 2021-01-19 16:43 | P.OP ---
Date of Procedure: 01/19/21 Procedure(s) Performed: PREOPERATIVE DIAGNOSIS: Acute appendicitis POSTOPERATIVE DIAGNOSIS: Same PROCEDURE: Laparoscopic appendectomy SURGEON: Robin EBL: 5 mL ANESTHESIA: General COMPLICATIONS: None OPERATIVE PROCEDURE: The patient was brought and placed on the operating table in the supine position. The patient was placed under general anesthesia. The abdomen was prepped and draped in the usual sterile fashion. A small vertical infraumbilical incision was made. The fascia was retracted anteriorly with Ruthy forceps. The Veress needle was advanced into the peritoneal cavity. The saline drop test was normal. Insufflation took place to 15 mmHg. A 5 mm trocar was then placed. An additional 5 mm suprapubic trocar was placed under direct visualization as well as a 12 mm left lower quadrant trocar under direct visualization. The appendix was inspected. It was acutely inflamed. The mesoappendix was dissected. The base of the appendix was divided using a linear 45 mm intestinal stapler. The mesentery itself was divided using the LigaSure. A prominent mesenteric vessel was clipped using a 12 mm clipper. The area was then irrigated. No further purulence or bleeding was seen. The appendix was brought out of the peritoneal cavity through the left lower quadrant trocar site with an Endo Catch bag. The fascia at the 12 mm site was closed using a Lopez Franko 0 Vicryl stitch. A small area of bleeding from the stitch insertion point of the needle passer was noted inferiorly and an additional 0 Vicryl suture was placed there with no further bleeding seen. The skin at all 3 sites was closed using 4-0 Monocryl sutures. Skin glue was then applied. DISPOSITION: Stable to recovery room
[2021-01-19] MEDS: HYDROcodone/APAP 5-325MG 1 EACH TAB PO PRN (20:52)
[2021-01-20] MEDS: HYDROcodone/APAP 5-325MG 1 EACH TAB PO PRN ×3 (00:50→10:36)
[2021-01-20] MEDS: HEPARIN SODIUM,PORCINE/PF 5,000 UNIT/0.5 ML SYRINGE SQ SCH ×3 (00:50→16:29)
[2021-01-20] MEDS: metroNIDAZOLE-NS PMX 500 MG in SALINE 1 100ML.BAG IVPB SCH ×3 (01:38→16:29)
[2021-01-20] MEDS ORDERED: KETOROLAC 15 MG/ML 1 ML VIAL IVP PRN (05:50)
[2021-01-20] MEDS: PANTOPRAZOLE 40 MG/10 ML VIAL IV SCH (07:53)
[2021-01-20 08:23] LABS: Basophils % (A) 0 %; Eosinophils # (A) 0.1 k/uL (0-0.7); Eosinophils % (A) 4 %; HCT 30.6 % (34.0-46.0); Hyperchromasia Moderate; Lymphocytes # (A) 0.1 k/uL (1.0-4.8); Lymphocytes % (A) 3 %; MCH 36.2 pg (25.0-35.0); MCHC 35.1 g/dL (31.0-37.0); MCV 103.3 fL (80.0-100.0); Macrocytosis Slight; Mean Platelet Volume 8.7; Monocytes # (A) 0.3 k/uL (0-1.0); Monocytes % (A) 10 %; Neutrophils # (A) 2.6 k/uL (1.3-7.7); Neutrophils % (A) 82 %; Platelet Count 104 k/uL (150-450); Poikilocytosis Slight; RBC 2.96 m/uL (3.80-5.40); RDW 14.4 % (11.5-15.5); WBC 3.1 k/uL (3.8-10.6)
[2021-01-20 08:31] LABS: HGB 10.7 gm/dL (11.4-16.0)
[2021-01-20] MEDS: LEVOFLOXACIN 500MG-D5W PMX 500 MG in DEXTROSE/WATER 1 100ML.BAG IVPB SCH (10:37)
--- NOTE | 2021-01-20 13:08 | P.DS ---
<Smita Perez - Last Filed: 01/20/21 13:06> Providers Expected date of discharge: 01/20/21 Hospital Course: Discharge diagnosis 1. Acute appendicitis status post laparoscopic appendectomy Hospital course This is a 51-year-old female with a known history of non-Hodgkin's lymphoma and hypertension. Her last chemotherapy treatment for her non-Hodgkin's was last week. Patient presents to the hospital with complaints of mid abdominal pain and right lower quadrant pain that started yesterday afternoon after lunch. She she did vomit yesterday as well had an episode of diarrhea. She's been having chills and sweats. Denies any fever. She had a computed tomography scan of the abdomen and pelvis completed showing inflammatory changes in the right lower quadrant with thickened posterior appendix related to acute appendicitis. There are appendicoliths. Inflammatory changes are new compared to old exam. Patient is status post laparoscopic appendectomy. She tolerated surgery well. Her pain is controlled. She is tolerating diet. She is up and ambulating. She is afebrile. Incision sites clean dry and intact. She is stable for discharge. Please refer to chart for any further details. Physician Hospital Clinic Assistant note has been reviewed by physician. Signing provider agrees with the documented findings, assessment, and plan of care. Patient Condition at Discharge: Stable Plan - Discharge Summary Discharge Rx Participant: Yes New Discharge Prescriptions: New Levofloxacin [Levaquin] 500 mg PO DAILY 7 Days #7 tab traMADol HCL [Ultram] 50 mg PO Q6HR PRN 2 Days #6 tab PRN Reason: Pain Continue amLODIPine [Norvasc] 5 mg PO DAILY Cholecalciferol [Vitamin D3 (25 Mcg = 1000 Iu)] 25 mcg PO Q3D ondansetron HCL [Zofran] 8 mg PO Q8H PRN PRN Reason: Nausea Prochlorperazine [Compazine] 5 mg PO Q8HR PRN PRN Reason: Nausea Discharge Medication List amLODIPine [Norvasc] 5 mg PO DAILY 06/28/14 [History] Cholecalciferol [Vitamin D3 (25 Mcg = 1000 Iu)] 25 mcg PO Q3D 09/28/20 [History] Prochlorperazine [Compazine] 5 mg PO Q8HR PRN 01/19/21 [History] ondansetron HCL [Zofran] 8 mg PO Q8H PRN 01/19/21 [History] Levofloxacin [Levaquin] 500 mg PO DAILY 7 Days #7 tab 01/20/21 [Rx] traMADol HCL [Ultram] 50 mg PO Q6HR PRN 2 Days #6 tab 01/20/21 [Rx] Follow up Appointment(s)/Referral(s): Vladimir Kelly MD [Medical Doctor] - 1 Week (MondayJan @8:50) Kb Sandra MD [Primary Care Provider] - 1 Week Patient Instructions/Handouts: *Surgery [facility] - Scopalamine Patch Instructions Activity/Diet/Wound Care/Special Instructions: No driving while taking Ultram No lifting over 10 pounds You may shower. No soaking or tub baths for 2 weeks Very light activity until you are reevaluated at your follow up appointment with your surgeon Okay to alternate with [id number] Tylenol and Motrin for the next 24-48 hours PRN pain Hold Norvasc for SBP<120. check BP daily Discharge Disposition: HOME SELF-CARE <Vladimir Kelly - Last Filed: 01/20/21 19:51> Providers Date of admission: 01/19/21 02:28 Attending physician: Vladimir Kelly Consults: 01/19/21 02:28 Consult Physician Routine Consulting Provider: Kb Sandra Consult Reason/Comments: your patient Do you want consulting provider notified?: Yes Primary care physician: Kb [facility] Course: As above. Patient doing well today. Tolerating diet. Pain much improved. She is afebrile. Labs noted. May discharge. 5 days Levaquin will be provided. Ultram also being prescribed. Follow-up in one week. Follow-up with oncology prior to resumption of chemotherapy.
[2021-01-20 13:36] VITALS: BP 113/69; PULSE 61; RESP 16; TEMP 98.1
--- NOTE | 2021-01-20 14:53 | P.PN ---
Subjective Progress Note Date: 01/20/21 Principal diagnosis: Appendicitis She is recovering after surgery, will need close monitoring of blood counts post operative and through tin of chemotherapy. will set up with office. Objective - Vital Signs Vital signs: Vital Signs Temp 98.5 F 01/20/21 08:00 Pulse 52 L 01/20/21 08:00 Resp 18 01/20/21 08:00 BP 109/68 01/20/21 08:00 Pulse Ox 98 01/20/21 08:00 Intake & Output 01/19/21 01/20/21 01/20/21 18:59 06:59 18:59 Intake Total 1100 722 Output Total 5 Balance 1095 722 Intake: IV 1100 Oral 722 Output: Estimated Blood Loss 5 Other: Voiding Method Toilet Toilet # Voids 1 1 1 - Exam Alert and Oriented, NAD Neck: Supple Lungs: CTA Heart: Tachy Abdomen: Recent surgical intervention No edema No rash Appropriate mood - Labs CBC & Chem 7: 01/20/21 06:56 01/18/21 23:21 Labs: Abnormal Lab Results - Last 24 Hours (Table) 01/20/21 Range/Units 06:56 WBC 3.1 L (3.8-10.6) k/uL RBC 2.96 L (3.80-5.40) m/uL Hgb 10.7 L D (11.4-16.0) gm/dL Hct 30.6 L (34.0-46.0) % MCV 103.3 H (80.0-100.0) fL MCH 36.2 H (25.0-35.0) pg Plt Count 104 L (150-450) k/uL Lymphocytes # 0.1 L (1.0-4.8) k/uL Assessment and Plan (1) Acute appendicitis Current Visit: Yes Status: Acute Code(s): K35.80 - UNSPECIFIED ACUTE APPENDICITIS SNOMED Code(s): 42084402 (2) Pancytopenia due to antineoplastic chemotherapy Current Visit: Yes Status: Acute Code(s): D61.810 - ANTINEOPLASTIC CHEMOTHERAPY INDUCED PANCYTOPENIA; T45.1X5A - ADVERSE EFFECT OF ANTINEOPLASTIC AND IMMUNOSUP DRUGS, INIT SNOMED Code(s): 197053511267433 (3) NHL (non-Hodgkin's lymphoma) Current Visit: Yes Status: Chronic Priority: Medium Code(s): C85.90 - NON- HODGKIN LYMPHOMA, UNSPECIFIED, UNSPECIFIED SITE SNOMED Code(s): 964956564 Plan: Pancytopenia: Stable in safe range, no intervention required - Monitor CBC Acute Appendicitis: - Status Post Appendectomy NHL: - Continue on treatment after recovered from above She will see [employer] DRIVER in office Monday to check CBC
--- NOTE | 2021-03-09 12:54 | ED ---
Abdominal Pain HPI - General Chief Complaint: Abdominal Pain Stated Complaint: severe stomach ache Time Seen by Provider: 01/18/21 22:43 Source: patient Mode of arrival: ambulatory Limitations: no limitations - History of Present Illness MD Complaint: abdominal pain -: hour(s) Location: periumbilical, RLQ Radiation: none Severity: moderate Quality: aching Consistency: constant Improves With: nothing Worsens With: movement Associated Symptoms: nausea - Related Data Home Medications Medication Instructions Recorded Confirmed amLODIPine [Norvasc] 5 mg PO DAILY 06/28/14 01/19/21 Cholecalciferol [Vitamin D3 (25 25 mcg PO Q3D 09/28/20 01/19/21 Mcg = 1000 Iu)] Prochlorperazine [Compazine] 5 mg PO Q8HR PRN 01/19/21 01/19/21 ondansetron HCL [Zofran] 8 mg PO Q8H PRN 01/19/21 01/19/21 Previous Rx's Medication Instructions Recorded Levofloxacin [Levaquin] 500 mg PO DAILY 7 Days #7 tab 01/20/21 traMADol HCL [Ultram] 50 mg PO Q6HR PRN 2 Days #6 tab 01/20/21 Allergies Allergy/AdvReac Type Severity Reaction Status Date / Time clarithromycin [From Biaxin] Allergy Swelling Verified 01/19/21 14:50 Penicillins Allergy Swelling Verified 01/19/21 14:50 Sulfa (Sulfonamide Allergy Unknown Verified 01/19/21 14:50 Antibiotics) Childhood Review of Systems ROS Statement: Those systems with pertinent positive or pertinent negative responses have been documented in the HPI. ROS Other: All systems not noted in ROS Statement are negative. Constitutional: Denies: fever, chills, weakness Respiratory: Denies: cough, dyspnea Cardiovascular: Denies: chest pain, palpitations, edema Gastrointestinal: Reports: abdominal pain, nausea. Denies: vomiting, diarrhea, constipation Genitourinary: Denies: dysuria, hematuria Musculoskeletal: Denies: back pain Skin: Denies: rash Neurological: Denies: headache, weakness, numbness Past Medical History Past Medical History: Cancer, Hypertension Additional Past Medical History / Comment(s): received both moderna vaccines,low red blood cells and platelets-having blood transfusion on 09-28-20. NON HODKINS LYMPHOMA History of Any Multi-Drug Resistant Organisms: None Reported Additional Past Surgical History / Comment(s): ovarian cyst removal. BONE MARROW BIOPSY Past Anesthesia/Blood Transfusion Reactions: Postoperative Nausea & Vomiting (PONV) Past Psychological History: No Psychological Hx Reported Smoking Status: Never smoker Past Alcohol Use History: Occasional Past Drug Use History: None Reported - Past Family History Mother Family Medical History: No Reported History, Hypertension Father Family Medical History: Hypertension General Exam Limitations: no limitations General appearance: alert, in no apparent distress Head exam: Present: atraumatic, normocephalic Eye exam: Present: normal appearance. Absent: scleral icterus, conjunctival injection ENT exam: Present: normal oropharynx Neck exam: Present: normal inspection Respiratory exam: Present: normal lung sounds bilaterally. Absent: respiratory distress, wheezes, rales, rhonchi, stridor Cardiovascular Exam: Present: regular rate, normal rhythm, normal heart sounds. Absent: systolic murmur, diastolic murmur, rubs, gallop GI/Abdominal exam: Present: soft, tenderness (There is moderate lower abdominal tenderness no rebound or guarding). Absent: distended, guarding, rebound, rigid, mass, pulsatile mass, hernia Extremities exam: Present: normal inspection, normal capillary refill. Absent: pedal edema, calf tenderness Back exam: Present: normal inspection. Absent: CVA tenderness (R), CVA tenderness (L) Neurological exam: Present: alert Skin exam: Present: warm, dry, intact, normal color. Absent: rash Course Vital Signs 01/18/21 01/19/21 01/19/21 21:47 01:06 02:55 Temperature 98.1 F Pulse Rate 74 66 70 Respiratory 18 18 18 Rate Blood Pressure 130/83 131/84 130/86 O2 Sat by Pulse 100 100 98 Oximetry 01/19/21 03:28 Temperature 97.4 F L Pulse Rate 69 Respiratory 18 Rate Blood Pressure 116/78 O2 Sat by Pulse 97 Oximetry Procedures - Pound Protocol (Time Out) Patient Identification (2 identifiers required): Chart, Name, Birthdate Patient/Legal Route Delivery Driver has Confirmed: Identity, Site, Procedure, Consent Site Marked: Not Applicable Medical Decision Making - Lab Data Result diagrams: 01/20/21 06:56 01/18/21 23:21 Lab Results 01/18/21 01/18/21 01/18/21 Range/Units 23:21 23:21 23:21 WBC 8.2 (3.8-10.6) k/uL RBC 3.78 L (3.80-5.40) m/uL Hgb 14.0 (11.4-16.0) gm/dL Hct 39.0 (34.0-46.0) % MCV 103.1 H (80.0-100.0) fL MCH 37.1 H (25.0-35.0) pg MCHC 36.0 (31.0-37.0) g/dL RDW 13.7 (11.5-15.5) % Plt Count 128 L (150-450) k/uL MPV 7.8 Neutrophils % 91 % Lymphocytes % 1 % Monocytes % 5 % Eosinophils % 3 % Basophils % 0 % Neutrophils # 7.5 (1.3-7.7) k/uL Lymphocytes # 0.1 L (1.0-4.8) k/uL Monocytes # 0.4 (0-1.0) k/uL Eosinophils # 0.2 (0-0.7) k/uL Basophils # 0.0 (0-0.2) k/uL Hyperchromasia Slight Poikilocytosis Slight Macrocytosis Slight Sodium (137-145) mmol/L Potassium (3.5-5.1) mmol/L Chloride (98-107) mmol/L Carbon Dioxide (22-30) mmol/L Anion Gap mmol/L BUN (7-17) mg/dL Creatinine (0.52-1.04) mg/dL Est GFR (CKD-EPI)AfAm (>60 ml/min/1.73 sqM) Est GFR (CKD-EPI)NonAf (>60 ml/min/1.73 sqM) Glucose (74-99) mg/dL Calcium (8.4-10.2) mg/dL Total Bilirubin (0.2-1.3) mg/dL AST (14-36) U/L ALT (4-34) U/L Alkaline Phosphatase (38-126) U/L Total Protein (6.3-8.2) g/dL Albumin (3.5-5.0) g/dL Amylase (30-110) U/L Lipase (23-300) U/L Urine Color Yellow Urine Appearance Clear (Clear) Urine pH 8.0 (5.0-8.0) Ur Specific [place] 1.016 (1.001-1.035) Urine Protein Negative (Negative) Urine Glucose (UA) Negative (Negative) Urine Ketones Negative (Negative) Urine Blood Negative (Negative) Urine Nitrite Negative (Negative) Urine Bilirubin Negative (Negative) Urine Urobilinogen <2.0 (<2.0) mg/dL Ur Leukocyte Esterase Negative (Negative) Urine HCG, Qual Not Detected (Not Detectd) 01/18/21 Range/Units 23:21 WBC (3.8-10.6) k/uL RBC (3.80-5.40) m/uL Hgb (11.4-16.0) gm/dL Hct (34.0-46.0) % MCV (80.0-100.0) fL MCH (25.0-35.0) pg MCHC (31.0-37.0) g/dL RDW (11.5-15.5) % Plt Count (150-450) k/uL MPV Neutrophils % % Lymphocytes % % Monocytes % % Eosinophils % % Basophils % % Neutrophils # (1.3-7.7) k/uL Lymphocytes # (1.0-4.8) k/uL Monocytes # (0-1.0) k/uL Eosinophils # (0-0.7) k/uL Basophils # (0-0.2) k/uL Hyperchromasia Poikilocytosis Macrocytosis Sodium 133 L (137-145) mmol/L Potassium 4.1 (3.5-5.1) mmol/L Chloride 97 L (98-107) mmol/L Carbon Dioxide 25 (22-30) mmol/L Anion Gap 11 mmol/L BUN 14 (7-17) mg/dL Creatinine 0.78 (0.52-1.04) mg/dL Est GFR (CKD-EPI)AfAm >90 (>60 ml/min/1.73 sqM) Est GFR (CKD-EPI)NonAf 89 (>60 ml/min/1.73 sqM) Glucose 110 H (74-99) mg/dL Calcium 10.1 (8.4-10.2) mg/dL Total Bilirubin 1.2 (0.2-1.3) mg/dL AST 23 (14-36) U/L ALT 17 (4-34) U/L Alkaline Phosphatase 77 (38-126) U/L Total Protein 7.7 (6.3-8.2) g/dL Albumin 5.1 H (3.5-5.0) g/dL Amylase 118 H (30-110) U/L Lipase 92 (23-300) U/L Urine Color Urine Appearance (Clear) Urine pH (5.0-8.0) Ur Specific [place] (1.001-1.035) Urine Protein (Negative) Urine Glucose (UA) (Negative) Urine Ketones (Negative) Urine Blood (Negative) Urine Nitrite (Negative) Urine Bilirubin (Negative) Urine Urobilinogen (<2.0) mg/dL Ur Leukocyte Esterase (Negative) Urine HCG, Qual (Not Detectd) Disposition Clinical Impression: Acute appendicitis, Abdominal pain Disposition: ADMITTED IP TO THIS [facility] Condition: Stable
== END 2021-01-20 19:04 | disposition home or self-care (01) ==
LOC: EC 20:44 → 6PED 01-19 02:28
PROVIDERS: ADMIT Surgery; ATTEND Surgery
DX: K35.80 Unspecified acute appendicitis (principal); C7A.020 Malignant carcinoid tumor of the appendix; C81.90 Hodgkin lymphoma, unspecified, unspecified site; I10 Essential (primary) hypertension; D61.810 Antineoplastic chemotherapy induced pancytopenia; T45.1X5A Adverse effect of antineoplastic and immunosuppressive drugs, initial encounter; R61 Generalized hyperhidrosis; Z20.822 Contact with and (suspected) exposure to COVID-19; Z92.21 Personal history of antineoplastic chemotherapy; Z79.899 Other long term (current) drug therapy; Z88.0 Allergy status to penicillin; Z88.2 Allergy status to sulfonamides; Z88.1 Allergy status to other antibiotic agents; Z53.29 Procedure and treatment not carried out because of patient's decision for other reasons; Z82.49 Family history of ischemic heart disease and other diseases of the circulatory system
CPT/HCPCS: 44970; 96366 ×2; 96376 ×2; 96361; 96365; 96375; 99285; 36415; 88304; 80053; 82150; 83690; 85025 ×2; 81003; 88342; 81025; 88341; 87635; 74018; 74176; G0378 ×2; J2250; J2270; J1200; J1644 ×2; J2710; J2405; J1956 ×2; J2001; J0692; J3010; J1885; J2370; J0330; J2704; C9113 ×2

== ENCOUNTER → 2021-01-29 | Outpatient (CLI) | payer BC ==
--- NOTE | 2021-01-29 15:40 | PE ---
EXAMINATION TYPE: PET CT fusion skull to thigh DATE OF EXAM: 01/29/2021 COMPARISON: Prior PET/CT October 10, 2020. Most recent CT January 19, 2021 HISTORY: Non-Hodgkin Lymphoma progress study diagnosed on bone marrow biopsy September 29. Completed kenroy motherapy January 13. TECHNIQUE: Following the intravenous administration of 10.12 mCi of F-18 FDG, whole body images are performed from the skull base to the midthigh. Images are reviewed on the computer in the coronal, a xial, and sagittal planes. Reconstructed rotating images are created on independent workstation and reviewed on the computer. A localization and attenuation correction CT is performed in conjunction with the PET scan. Blood glucose level equals 88. SCAN: Subsequent Scan FINDINGS: Mean SUV mediastinum: 0.82 Mean SUV liver: 1.99 SKULL BASE AND NECK: No new areas of suspicious abnormal hypermetabolic uptake CHEST, MEDIASTINUM, AND HILAR REGION: A few prominent mildly hypermetabolic right axillary lymph node s on current study. Patient reports recently received covid booster in her right arm 4 days earlier . No additional new areas of abnormal hypermetabolic uptake. ABDOMEN AND PELVIS: Normal excretion. No areas of abnormal hypermetabolic uptake. Improved left exter nal iliac chain hypermetabolic adenopathy prior study axial image 206. OSSEOUS STRUCTURES: No new areas of abnormal hypermetabolic uptake. OTHER CT: Surgical changes at base of cecum from interval appendectomy noted. Retroverted uterus. IMPRESSION: No suspicious hypermetabolic uptake or new adenopathy to suggest active lymphoma.
== END | disposition home or self-care (01) ==
LOC: RADPETMAIN 09:08
PROVIDERS: ATTEND Internal Medicine Hematology & Oncology
DX: C85.85 Other specified types of non-Hodgkin lymphoma, lymph nodes of inguinal region and lower limb (principal)
CPT/HCPCS: 78815; A9552

== ENCOUNTER → 2021-02-01 | Outpatient (CLI) | payer BC ==
--- NOTE | 2021-02-01 11:47 | US ---
EXAMINATION TYPE: US venous doppler duplex UE LT DATE OF EXAM: 02/01/2021 COMPARISON: NONE CLINICAL HISTORY: pain and swelling left upper M79.622, R22.32. Pt states left arm pain and swelling at left antecubital fossa SIDE PERFORMED: Left The left internal jugular, subclavian, axillary, radial and ulnar veins are patent and compressible. Left Arm: Negative for DVT, positive SVT within left basilic and cephalic veins Results called to Ashley at 's office at time of exam IMPRESSION: Superficial vein thrombosis within the left basilic and cephalic veins.
== END | disposition home or self-care (01) ==
LOC: RADUSWWP 10:25
PROVIDERS: ATTEND Internal Medicine Hematology & Oncology
DX: I82.612 Acute embolism and thrombosis of superficial veins of left upper extremity (principal)

== ENCOUNTER → 2021-04-01 | Day surgery (SDC) | payer BC ==
[2021-03-30 09:54] VITALS: BMI 21.2
[~2021-04-01] MED LIST changes: +PROPOFOL 10 MG/ML 20 ML VIAL IV ONE
[2021-04-01 06:56] VITALS: TEMP 97.1
[2021-04-01 07:33] VITALS: RESP 14
[2021-04-01 07:46] VITALS: BP 132/86; PULSE 69
[2021-04-01 08:15] LABS: HCT 33.7 % (34.0-46.0); MCH 36.7 pg (25.0-35.0); MCHC 35.7 g/dL (31.0-37.0); MCV 102.7 fL (80.0-100.0); Macrocytosis Slight; Mean Platelet Volume 7.7; Platelet Count 140 k/uL (150-450); RBC 3.28 m/uL (3.80-5.40); RDW 14.7 % (11.5-15.5); Reticulocyte % 2.4 % (0.5-2.0)
[2021-04-01 09:16] LABS: Band Neutrophils % 1 %; Basophils # (M) 0.02 k/uL (0-0.2); Eosinophils # (M) 0.36 k/uL (0-0.7); Lymphocytes # (M) 0.12 k/uL (1.0-4.8); Monocytes # (M) 0.18 k/uL (0-1.0); Neutrophils % (M) 65 %; Nucleated Red Blood Cells 0 /100 WBC (0-0); Total Cells Counted 100
[2021-04-01 09:21] LABS: Anisocytosis (M) Present; Poikilocytosis (M) Present; Spherocytes Present
--- NOTE | 2021-04-01 13:33 | PCN ---
PROCEDURE NOTE PREOPERATIVE DIAGNOSIS: Lymphoma. POSTOPERATIVE DIAGNOSIS: Lymphoma. ANESTHESIA: Local with IV systemic sedation. DETAILS: Utilizing sterile technique, the skin overlying the right iliac crest was prepared with Betadine and alcohol. After adequate sterile draping, local anesthesia with 1% lidocaine and systemic sedation, a size 11 4-inch Jamshidi needle was utilized to access the periosteum with ease. A total of 15 mL of aspirate and 5 cm bone core biopsies were obtained. The patient tolerated the procedure very well. There was no immediate procedure-related complication. Total blood loss less than 1 mL. Results pending. MMODL / IJN: [id number] /
== END | disposition home or self-care (01) ==
LOC: OR 06:12
PROVIDERS: ATTEND Internal Medicine Hematology & Oncology
DX: D72.810 Lymphocytopenia (principal); D69.6 Thrombocytopenia, unspecified; D53.9 Nutritional anemia, unspecified; I10 Essential (primary) hypertension; Z98.890 Other specified postprocedural states; Z86.19 Personal history of other infectious and parasitic diseases; Z79.899 Other long term (current) drug therapy; Z88.1 Allergy status to other antibiotic agents; Z88.0 Allergy status to penicillin; Z88.2 Allergy status to sulfonamides
CPT/HCPCS: 81025; 85025; 85045; 38222; J2704

== ENCOUNTER → 2021-04-02 | Outpatient (CLI) | payer BC ==
--- NOTE | 2021-04-02 11:43 | PE ---
EXAMINATION TYPE: PET CT fusion skull to thigh DATE OF EXAM: 04/02/2021 COMPARISON: Prior PET/CT January 29, 2021 and older studies HISTORY: Appendiceal cancer. History of non-Hodgkin lymphoma. Completed chemotherapy March 10. Recent bone marrow biopsy yesterday. TECHNIQUE: Following the intravenous administration of 11.59 mCi of F-18 FDG, whole body images are performed from the skull base to the midthigh. Images are reviewed on the computer in the coronal, a xial, and sagittal planes. Reconstructed rotating images are created on independent workstation and reviewed on the computer. A localization and attenuation correction CT is performed in conjunction with the PET scan. Blood glucose level equals 102 SCAN: Subsequent Scan FINDINGS: SKULL BASE AND NECK: No new areas of suspicious abnormal hypermetabolic uptake CHEST, MEDIASTINUM, AND HILAR REGION: No new areas of abnormal hypermetabolic uptake. Interval resolu tion of the mildly hypermetabolic right axillary lymph nodes. ABDOMEN AND PELVIS: Normal excretion. No areas of abnormal hypermetabolic uptake. No recurrent hyperm etabolic pelvic iliac chain lymph nodes. OSSEOUS STRUCTURES: No new areas of abnormal hypermetabolic uptake. OTHER CT: Surgical changes at base of cecum is redemonstrated. Retroverted uterus again seen. IMPRESSION: No suspicious recurrent hypermetabolic uptake or new adenopathy to suggest active lymphom a.
== END | disposition home or self-care (01) ==
LOC: RADPETMAIN 08:12
PROVIDERS: ATTEND Internal Medicine Hematology & Oncology
DX: C7A.020 Malignant carcinoid tumor of the appendix (principal); Z85.72 Personal history of non-Hodgkin lymphomas
CPT/HCPCS: 78815; A9552

== ENCOUNTER → 2021-09-23 | Outpatient (CLI) | payer BC ==
--- NOTE | 2021-09-25 14:24 | MM ---
Reason for Exam: Screening (asymptomatic). Last screening mammogram was performed 12 month(s) ago. Patient History: Menarche at age 14. Patient has no children. Hormonal Contraceptives for 30 years from age 20 until age 50. Last menstrual period: 01/19/2021 Risk Values: Amaya 5 year model risk: 1.0%. NCI Lifetime model risk: 8.9%. Prior Study Comparison: 05/31/2018 Bilateral Screening Mammogram, [facility]. 09/11/2019 Bilateral Screening Mammogram, [facility]. 09/22/2020 Bilateral Screening Mammogram, [facility]. Tissue Density: The breast tissue is heterogeneously dense. This may lower the sensitivity of mammography. Findings: Analyzed By CAD. No significant change from prior exam. Overall Assessment: Negative, BI-RAD 1 Management: Screening Mammogram of both breasts in 1 year. A clinical breast exam by your physician is recommended on an annual basis and results should be correlated with mammographic findings. Also, the patient should continue monthly self breast exams. Electronically signed and approved by: Veronica Nogueira M.D. Radiologist
== END | disposition home or self-care (01) ==
LOC: RADMAMWWP 07:23
PROVIDERS: ATTEND Obstetrics & Gynecology
DX: Z12.31 Encounter for screening mammogram for malignant neoplasm of breast (principal)
CPT/HCPCS: 77063; 77067

== ENCOUNTER → 2021-09-24 | Outpatient (CLI) | payer BC ==
--- NOTE | 2021-09-24 21:19 | MR ---
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 The thoracic vertebrae have fairly normal spacing and alignment. Cervical vertebra show normal alignm ent. Cervical spinal cord shows fairly normal signal pattern. No edema. No evidence of thoracic spina l stenosis. No compression fracture. No pathologic enhancement. Posterior elements are intact. There is no eviden ce of thoracic paraspinal mass. There is rounded area of increased signal on the T1 and T2 images in the T12 vertebral body that is likely a hemangioma. IMPRESSION: Negative MRI scan of the thoracic spine. No evidence of metastatic disease.
== END | disposition home or self-care (01) ==
LOC: RADMRIMAIN 17:57
PROVIDERS: ATTEND Internal Medicine Hematology & Oncology
DX: C7A.020 Malignant carcinoid tumor of the appendix (principal); Z85.038 Personal history of other malignant neoplasm of large intestine; Z85.72 Personal history of non-Hodgkin lymphomas
CPT/HCPCS: 72157; A9585

== ENCOUNTER → 2022-02-01 | Outpatient (CLI) | payer BC ==
--- NOTE | 2022-02-02 07:44 | XR ---
EXAMINATION TYPE: XR Hip Complete RT DATE OF EXAM: 02/01/2022 4:20 PM INDICATION: Patient age:Female; 52 years old; Reason for study: C7A.020, C85.10, C96.Z, I10; [facility]. COMPARISON: Right hip radiograph 06/28/2014. TECHNIQUE: The right hip was examined in the frontal and lateral projections . FINDINGS: No evidence of any acute osseous pathology, joint dislocation, or soft tissue swelling. No aggressive osseous lesion. Pelvic phleboliths. IMPRESSION: No acute osseous pathology.
== END | disposition home or self-care (01) ==
LOC: RADXRMAIN 16:08
PROVIDERS: ATTEND Internal Medicine Hematology & Oncology
DX: C7A.020 Malignant carcinoid tumor of the appendix (principal); C85.10 Unspecified B-cell lymphoma, unspecified site; C96.Z Other specified malignant neoplasms of lymphoid, hematopoietic and related tissue; I10 Essential (primary) hypertension
CPT/HCPCS: 73502

== ENCOUNTER → 2022-04-16 | Outpatient (CLI) | payer BC ==
[2022-04-16 20:47] LABS: Chol/HDL Ratio 2.89 Ratio; LDL Cholesterol,Calculated 109.7 mg/dL (0.0-131.0); VLDL Calculation 17.82 mg/dL (5.00-40.00)
== END | disposition home or self-care (01) ==
LOC: LABWHC1 10:26
PROVIDERS: ATTEND Obstetrics & Gynecology
DX: Z13.220 Encounter for screening for lipoid disorders (principal); Z13.29 Encounter for screening for other suspected endocrine disorder
CPT/HCPCS: 36415; 80061; 84439; 84443; 84479; 84481

== ENCOUNTER → 2022-09-13 | Outpatient (CLI) | payer BC ==
--- NOTE | 2022-09-14 09:56 | CT ---
EXAMINATION TYPE: CT abdomen pelvis w con DATE OF EXAM: 09/13/2022 COMPARISON: 04/02/2021 PET/CT, CT 521 INDICATION: RUQ abdominal pain, history of lymphoma. 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 DLP: 493 mGycm, Automated exposure control for dose reduction was used. CONTRAST: 100 cc mL of Isovue 300. Study performed with Oral Contrast TECHNIQUE: Axial images were obtained from above the diaphragm to the pubic rami in the axial plane a t 5 mm thick sections. Reconstructed images are reviewed on the computer in the coronal plane. FINDINGS: Limited CT sections are obtained the lung bases. The lung bases are clear. CT ABDOMEN: Liver: Normal Spleen: Normal Pancreas: Normal Adrenal glands: The adrenal glands are normal. Gallbladder: Normal Kidneys: No masses are evident. No hydronephrosis is present. Tiny cortical renal cysts identified on the right on the delayed images. Aorta: Normal Inferior vena cava: Normal. CT PELVIS: Loops of bowel within the abdomen and pelvis are normal. There are loops of bowel which are incom pletely distended or lack oral contrast limiting their evaluation. Appendix: Not identified. No suspicious masses are identified. Urinary bladder: Normal. Genitourinary structures: Uterus is slightly bulky. Underlying fibroid may be present within the fund us. Adnexa appear normal. Osseous structures: No suspicious lytic or sclerotic lesions. Lymphadenopathy: No suspicious lymphadenopathy is evident. Retrocrural regions appear normal. Periaor tic and retrocaval regions are normal. No iliac chain or obturator canal adenopathy is evident. No burgos spicious inguinal adenopathy. IMPRESSIONS: 1. 1. No suspicious abnormality to account for right upper quadrant pain. 2 no suspicious changes for re current lymphoma. 3. Somewhat bulky uterus. Uterine fibroid should considered. This could be evaluated with ultrasound.
== END | disposition home or self-care (01) ==
LOC: RADCTMAIN 15:55
PROVIDERS: ATTEND Internal Medicine Hematology & Oncology
DX: C85.10 Unspecified B-cell lymphoma, unspecified site (principal); C7A.020 Malignant carcinoid tumor of the appendix; C96.Z Other specified malignant neoplasms of lymphoid, hematopoietic and related tissue; N85.2 Hypertrophy of uterus; I10 Essential (primary) hypertension; D25.9 Leiomyoma of uterus, unspecified
CPT/HCPCS: 74177; Q9967

== ENCOUNTER → 2022-09-26 | Outpatient (CLI) | payer BC ==
--- NOTE | 2022-09-26 19:23 | MM ---
Reason for Exam: Screening (asymptomatic). Last screening mammogram was performed 12 month(s) ago. Patient History: Menarche at age 14. Patient has no children. Hormonal Contraceptives for 30 years from age 20 until age 50. Risk Values: Amaya 5 year model risk: 1.1%. NCI Lifetime model risk: 8.8%. Prior Study Comparison: 09/11/2019 Bilateral Screening Mammogram, [facility]. 09/22/2020 Bilateral Screening Mammogram, [facility]. 09/23/2021 Bilateral MG 3D screening mammo w/cad, [facility]. Tissue Density: The breast tissue is heterogeneously dense. This may lower the sensitivity of mammography. Findings: Analyzed By CAD. Pattern is symmetrical and stable. No significant interval change. No suspicious groups of microcalcifications, spiculated or lobular masses, architectural distortion or other secondary signs of malignancy are mammographically apparent. Overall Assessment: Benign, BI-RAD 2 Management: Screening Mammogram of both breasts in 1 year. A negative mammogram report should not preclude additional follow up of suspicious palpable abnormalities. Patient should continue monthly self breast exam. A clinical breast exam by your physician is recommended on an annual basis and results should be correlated with mammographic findings. Electronically signed and approved by: Otoniel Bae D.O. Radiologis
== END | disposition home or self-care (01) ==
LOC: RADMAMWWP 07:02
PROVIDERS: ATTEND Obstetrics & Gynecology
DX: Z12.31 Encounter for screening mammogram for malignant neoplasm of breast (principal)
CPT/HCPCS: 77063; 77067

== ENCOUNTER → 2023-04-12 | Outpatient (CLI) | payer BC ==
[2023-04-12 15:04] LABS: HCT 43.8 % (37.2-46.3); MCH 32.5 pg (27.0-32.0); MCHC 34.2 g/dL (32.0-37.0); MCV 94.8 FL (80.0-97.0); Mean Platelet Volume 10.7 FL (9.5-12.2); NRBC Per 100 WBC 0 X 10*3/uL (0.00-0.01); Platelet Count 222 X 10*3/uL (140-440); RBC 4.62 X 10*6/uL (4.10-5.20); RDW 12.4 % (11.5-14.5); WBC 3.89 X 10*3/uL (4.50-10.00)
[2023-04-12 15:56] LABS: LDL Cholesterol,Calculated 106.4 mg/dL (0.0-131.0)
[2023-04-12 15:57] LABS: ALT 16 U/L (8-44); AST 18 U/L (13-35); Albumin 4.9 g/dL (3.8-4.9); Albumin/Globulin Ratio 2.45 Ratio (1.60-3.17); Alkaline Phosphatase 96 U/L (41-126); BUN/Creat Ratio 15.67 Ratio (12.00-20.00); Blood Urea Nitrogen 14.1 mg/dL (9.0-27.0); Calcium 10.4 mg/dL (8.7-10.3); Carbon Dioxide 23.7 mmol/L (21.6-31.8); Chloride 105 mmol/L (96-109); Glucose 93 mg/dL (70-110); Potassium 3.9 mmol/L (3.5-5.5); Sodium 143 mmol/L (135-145); T4, Free (Free Thyroxine) 1.26 ng/dL (0.80-1.80); Total Bilirubin 0.5 mg/dL (0.3-1.2); Total Protein 6.9 g/dL (6.2-8.2)
== END | disposition home or self-care (01) ==
LOC: LABWHC1 10:10
PROVIDERS: ATTEND Obstetrics & Gynecology
DX: Z13.220 Encounter for screening for lipoid disorders (principal); Z13.29 Encounter for screening for other suspected endocrine disorder; R53.83 Other fatigue
CPT/HCPCS: 36415; 80053; 80061; 82306; 83036; 84439; 84443; 84479; 85027

== ENCOUNTER → 2023-04-21 | Outpatient (CLI) | payer BC ==
--- NOTE | 2023-04-21 08:43 | USB ---
Reason for Exam: Clinical finding. Patient History: Menarche at age 14. Patient has no children. Postmenopausal. Other cancer, age 50. Other cancer, age 50. Hormonal Contraceptives for 30 years from age 20 until age 50. Risk Values: Amaya 5 year model risk: 1.1%. NCI Lifetime model risk: 8.6%. Technique: Method: Targeted. Prior Study Comparison: 09/22/2020 Bilateral Screening Mammogram, [facility]. 09/23/2021 Bilateral MG 3D screening mammo w/cad, [facility]. 09/26/2022 Bilateral MG 3D screening mammo w/cad, [facility]. Findings: The lateral section of the breast of the left breast and the axilla of the left breast were scanned. No solid or cystic masses are identified. There are scattered unremarkable lymph nodes within the axilla. No discrete abnormality in the region of pain. Overall Assessment: Benign, BI-RAD 2 Management: Diagnostic Mammogram of both breasts in 6 months. A clinical breast exam by your physician is recommended on an annual basis and results should be correlated with mammographic findings. This exam should not preclude additional follow-up of suspicious palpable abnormalities. Results were given to the patient verbally at the time of exam. Electronically signed and approved by: Otoniel Bae D.O. Radiologis
--- NOTE | 2023-04-21 09:19 | MM ---
Reason for Exam: Clinical finding. Last screening mammogram was performed 7 month(s) ago. Indicated Problems: Pain of the left side (Focal) for 8 Day(s). Patient History: Menarche at age 14. Patient has no children. Postmenopausal. Other cancer, age 50. Other cancer, age 50. Hormonal Contraceptives for 30 years from age 20 until age 50. Risk Values: Amaya 5 year model risk: 1.1%. NCI Lifetime model risk: 8.6%. Prior Study Comparison: 05/26/2016 Bilateral Screening Mammogram, [facility]. 05/29/2017 Bilateral Screening Mammogram, [facility]. 05/31/2018 Bilateral Screening Mammogram, [facility]. 09/11/2019 Bilateral Screening Mammogram, [facility]. 09/22/2020 Bilateral Screening Mammogram, [facility]. 09/23/2021 Bilateral MG 3D screening mammo w/cad, [facility]. 09/26/2022 Bilateral MG 3D screening mammo w/cad, [facility]. Tissue Density: Left: The breast tissue is heterogeneously dense. This may lower the sensitivity of mammography. Analyzed By CAD. Overall Assessment: Incomplete: need additional imaging evaluation, BI-RAD 0 Management: Screening Breast Ultrasound Electronically signed and approved by: Otoniel Bae D.O. Radiologis
== END | disposition home or self-care (01) ==
LOC: LABWHC1 07:13
PROVIDERS: ATTEND Obstetrics & Gynecology
DX: N64.4 Mastodynia (principal); R92.332 Mammographic heterogeneous density, left breast; Z78.0 Asymptomatic menopausal state
CPT/HCPCS: 77061; 77065

== ENCOUNTER → 2023-08-16 | Outpatient (CLI) | payer BC ==
--- NOTE | 2023-08-17 11:54 | BD ---
EXAMINATION TYPE: Axial Bone Density DATE OF EXAM: 08/16/2023 CLINICAL HISTORY: 53 years old Female. ICD-10 CODE: M85.9 DISORDER OF BONE DENSITY AND STRUCTURE, UN SP Height: 5 ft 6 in Weight: 143 FRAX RISK QUESTIONS: Alcohol (3 or more units per day): no Family History (Parent hip fracture): no Glucocorticoids (More than 3mos): no (Ex: prednisone, prednisolone, methylprednisolone, dexamethasone, and hydrocortisone). History of Fracture in Adulthood: no Secondary Osteoporosis: 1. Type 1 Diabetes: no 2. Hyperthyroidism: no 3. Menopause before 45: chemo induced 2020 4. Malnutrition: no 5. Chronic liver disease: no Rheumatoid Arthritis: no Current Tobacco Use: no RISK FACTORS HISTORY OF: Surgery to Spine/Hip(right/left)/Wrist (right/left): no MEDICATIONS: Thyroid Medications: none Osteoporosis Medications: none EXAM MEASUREMENTS: Bone mineral densitometry was performed using the [employer] System. Bone mineral density as measured about the Lumbar spine is: ----- L1-L4(G/cm2): 1.147 T Score Values are as follows: ----- L1: -0.9 ----- L2: -0.2 ----- L3: 0.7 ----- L4: -0.7 ----- L1-L4: -0.3 Z Score Values are as follows: ----- L1: -0.3 ----- L2: 0.5 ----- L3: 1.4 ----- L4: -0.1 ----- L1-L4: 0.4 Bone mineral density has: decreased -18.0 % since study of: 2020 Bone mineral density about the R hip (g/cm2): 0.898 Bone mineral density about the L hip (g/cm2): 0.923 T Score values are as follows: -----R Neck: -1.0 -----L Neck: -0.8 -----R Total: -0.5 -----L Total: -0.2 Z Score values are as follows: -----R Neck: -0.1 -----L Neck: 0.1 -----R Total: 0.1 -----L Total: 0.4 Bone mineral density has: decreased -14.8 % since study of: 2020 FRAX%s: The graph provided illustrates a 5.0% chance for a major osteoporotic fx and a 0.3% chance fo r the hips probability for fx in 10 years time. IMPRESSION: Normal (Values between +1 and -1 indicate normal bone mass). Consider repeating this study in 5 year s or sooner if there is some new clinical indication. NOTE: T-SCORE=SD OF THE YOUNG ADULT MEAN.
== END | disposition home or self-care (01) ==
LOC: RADBDWWP 15:57
PROVIDERS: ATTEND Internal Medicine Hematology & Oncology
DX: C7A.020 Malignant carcinoid tumor of the appendix (principal); C96.Z Other specified malignant neoplasms of lymphoid, hematopoietic and related tissue; C85.10 Unspecified B-cell lymphoma, unspecified site; M85.9 Disorder of bone density and structure, unspecified; I10 Essential (primary) hypertension; Z78.0 Asymptomatic menopausal state
CPT/HCPCS: 77080

== ENCOUNTER → 2023-09-28 | Outpatient (CLI) | payer BC ==
--- NOTE | 2023-09-28 12:04 | CT ---
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 Delayed images through the kidneys were obtained. Coronal /sagittal reconstructions performed. CT DLP: 1208 mGycm Automated exposure control for dose reduction was used. FINDINGS: Chest: Heart normal size without pericardial effusion. Aorta normal caliber with a bovine configuration to the aortic arch. No thoracic lymphadenopathy by CT size criteria. Mild hazy dependent atelectasis posterior lungs. Mild diffuse bronchial wall thickening. Minimal biap ical pleural parenchymal scarring. Minimal emphysematous change may be present. No consolidation or p leural effusion. ABDOMEN: Liver mildly enlarged at 18.5 cm. No focal liver lesion. Portal venous system is patent. No biliary d uctal dilatation. Gallbladder, adrenal glands, kidneys, spleen, and pancreas within normal limits. No dilated small bowel, free fluid, or free air. No mesenteric or retroperitoneal lymphadenopathy. Surgical material right lower quadrant likely are related to prior appendectomy. Oral contrast progre ssed to the ascending colon. Mild overall stool burden. No pericolonic inflammatory change. Pelvis: Bladder urine distended. Uterus anteverted with a large exophytic subserosal fibroid from the posteri or wall measuring up to 5.3 cm. Tiny pelvic phleboliths. Suspect a small right ovary. Left ovary not clearly delineated. No abnormal fluid collection in the pelvis or pelvic lymphadenopathy. Bones: Scattered mild degenerative change in the spine. IMPRESSION: 1. NO SUSPICIOUS LYMPHADENOPATHY OR MASS TO SUGGEST RECURRENT OR METASTATIC DISEASE. 2. SIMILAR MILD HEPATOMEGALY AT 18.4 CM. 3. Redemonstrated large exophytic subserosal fibroid from the posterior wall of the uterus measuring up to 5.3 cm.
== END | disposition home or self-care (01) ==
LOC: RADCTMAIN 09:30
PROVIDERS: ATTEND Internal Medicine Hematology & Oncology
DX: D25.2 Subserosal leiomyoma of uterus (principal); C85.10 Unspecified B-cell lymphoma, unspecified site; R16.0 Hepatomegaly, not elsewhere classified; I10 Essential (primary) hypertension; M85.9 Disorder of bone density and structure, unspecified; C7A.020 Malignant carcinoid tumor of the appendix
CPT/HCPCS: 71260; 74177; 36415; Q9967

== ENCOUNTER → 2023-10-25 | Outpatient (CLI) | payer BC ==
--- NOTE | 2023-10-25 11:22 | MM ---
Reason for Exam: Follow-up at short interval from prior study. Last mammogram was performed 1 year(s) and 1 month(s) ago. Patient History: Menarche at age 14. Patient has no children. Postmenopausal. Other cancer, age 50. Other cancer, age 50. Hormonal Contraceptives for 30 years from age 20 until age 50. Risk Values: Amaya 5 year model risk: 1.1%. NCI Lifetime model risk: 8.6%. Prior Study Comparison: 05/22/2014 Bilateral Screening Mammogram, [facility]. 05/25/2015 Bilateral Screening Mammogram, [facility]. 05/26/2016 Bilateral Screening Mammogram, [facility]. 05/29/2017 Bilateral Screening Mammogram, [facility]. 05/31/2018 Bilateral Screening Mammogram, [facility]. 09/11/2019 Bilateral Screening Mammogram, [facility]. 09/22/2020 Bilateral Screening Mammogram, [facility]. 09/23/2021 Bilateral MG 3D screening mammo w/cad, [facility]. 09/26/2022 Bilateral MG 3D screening mammo w/cad, [facility]. 04/21/2023 Left MG 3D diag mammo w/cad LT, [facility]. 04/21/2023 Left US breast limited LT, [facility]. Tissue Density: The breasts are heterogeneously dense, which may obscure small masses. Findings: Analyzed By CAD. The pattern is symmetrical. Focal asymmetry identified on the craniocaudal view appears to be present on older examinations. Suspicious correlate MLO asymmetric density is not identified. No suspicious groups of microcalcifications, spiculated or lobular masses, architectural distortion or other secondary signs of malignancy are mammographically apparent. Overall Assessment: Benign, BI-RAD 2 Management: Screening Mammogram of both breasts in 1 year. A negative mammogram report should not preclude additional follow up of suspicious palpable abnormalities. Patient should continue monthly self breast exam. A clinical breast exam by your physician is recommended on an annual basis and results should be correlated with mammographic findings. Note on Amaya scores and lifetime risk: 1. A Amaya score greater than 3% is considered moderate risk. If this is the case, consider specialist referral to assess eligibility for a risk reducing agent. 2. If overall lifetime risk for the development of breast cancer is 20% or higher, the patient may qualify for future screening with alternating mammogram and breast MRI. Electronically signed and approved by: Otoniel Bae D.O. Radiologis
== END | disposition home or self-care (01) ==
LOC: RADMAMWWP 10:44
PROVIDERS: ATTEND Family Medicine
DX: R92.333 Mammographic heterogeneous density, bilateral breasts (principal); N64.4 Mastodynia; Z78.0 Asymptomatic menopausal state
CPT/HCPCS: 77062; 77066

== ENCOUNTER → 2023-12-12 | Outpatient (CLI) | payer BC ==
[2023-12-12 15:15] LABS: Basophils # (A) 0.03 X 10*3/uL (0.00-0.10); Basophils % (A) 0.8 %; Eosinophils % (A) 8.3 %; HCT 43.8 % (37.2-46.3); HGB 14.6 g/dL (12.0-15.0); Immature Grans, Automated 0 %; Lymphocytes % (A) 16.6 %; MCH 33.2 pg (27.0-32.0); MCHC 33.3 g/dL (32.0-37.0); MCV 99.5 FL (80.0-97.0); Mean Platelet Volume 10.9 FL (9.5-12.2); Monocytes # (A) 0.25 X 10*3/uL (0.20-1.00); Monocytes % (A) 6.9 %; NRBC Per 100 WBC 0 X 10*3/uL (0.00-0.01); Neutrophils # (A) 2.44 X 10*3/uL (1.80-7.70); Neutrophils % (A) 67.4 %; Platelet Count 249 X 10*3/uL (140-440); RDW 13.4 % (11.5-14.5); WBC 3.62 X 10*3/uL (4.50-10.00)
[2023-12-12 16:17] LABS: Appearance,Urine Clear (Clear); Bilirubin,Urine Negative (Negative); Blood,Urine Negative (Negative); Color,Urine Yellow (Yellow); Ketones,Urine Negative (Negative); Nitrite,Urine Negative (Negative); Specific Gravity,Urine 1.008 (1.001-1.030); Urobilinogen,Urine 0.2 E.U./DL
[2023-12-12 16:23] LABS: Bacteria,Urine None Seen (None Seen)
[2023-12-12 19:08] LABS: ALT 16 U/L (8-44); AST 18 U/L (13-35); Albumin 5.2 g/dL (3.8-4.9); Albumin/Globulin Ratio 2.89 Ratio (1.60-3.17); Alkaline Phosphatase 96 U/L (41-126); BUN/Creat Ratio 14.88 Ratio (12.00-20.00); Blood Urea Nitrogen 11.9 mg/dL (9.0-27.0); Calcium 10.1 mg/dL (8.7-10.3); Carbon Dioxide 24.4 mmol/L (21.6-31.8); Chloride 104 mmol/L (96-109); Globulin 1.8 g/dL (1.6-3.3); Glucose 89 mg/dL (70-110); LDL Cholesterol,Calculated 117.7 mg/dL (0.0-131.0); Magnesium 2.3 mg/dL (1.5-2.4); Potassium 4.5 mmol/L (3.5-5.5); Sodium 143 mmol/L (135-145); Total Bilirubin 0.4 mg/dL (0.3-1.2); Uric Acid 4.6 mg/dL (2.9-7.7); VLDL Calculation 19.92 mg/dL (5.00-40.00)
== END | disposition home or self-care (01) ==
LOC: LABWHC1 09:22
PROVIDERS: ATTEND Internal Medicine
DX: C83.39 Diffuse large B-cell lymphoma, extranodal and solid organ sites (principal); D3A.00 Benign carcinoid tumor of unspecified site; I10 Essential (primary) hypertension; E78.2 Mixed hyperlipidemia
CPT/HCPCS: 36415; 80053; 80061; 81001; 82306; 83036; 83735; 84443; 84550; 85025

== ENCOUNTER → 2024-07-23 | Outpatient (CLI) | payer BC ==
[2024-07-23 15:23] LABS: Basophils # (A) 0.04 X 10*3/uL (0.00-0.10); Basophils % (A) 1.1 %; Eosinophils # (A) 0.36 X 10*3/uL (0.04-0.35); Eosinophils % (A) 9.9 %; HCT 44.9 % (37.2-46.3); HGB 15.4 g/dL (12.0-15.0); Immature Grans, Automated 0 %; Lymphocytes # (A) 0.69 X 10*3/uL (0.90-5.00); Lymphocytes % (A) 19.1 %; MCHC 34.3 g/dL (32.0-37.0); MCV 96.4 FL (80.0-97.0); Mean Platelet Volume 10.5 FL (9.5-12.2); Monocytes # (A) 0.28 X 10*3/uL (0.20-1.00); Monocytes % (A) 7.7 %; NRBC Per 100 WBC 0 X 10*3/uL (0.00-0.01); Neutrophils # (A) 2.25 X 10*3/uL (1.80-7.70); Neutrophils % (A) 62.2 %; Platelet Count 275 X 10*3/uL (140-440); RBC 4.66 X 10*6/uL (4.10-5.20); RDW 12.3 % (11.5-14.5); WBC 3.62 X 10*3/uL (4.50-10.00)
[2024-07-23 15:39] LABS: Chol/HDL Ratio 3.64 Ratio; Creatine Kinase 60 U/L (26-186); LDL Cholesterol,Calculated 99.6 mg/dL (0.0-131.0); Magnesium 2.3 mg/dL (1.5-2.4); Uric Acid 4.2 mg/dL (2.9-7.7)
[2024-07-23 16:14] LABS: ALT 17 U/L (8-44); AST 25 U/L (13-35); Albumin 4.9 g/dL (3.8-4.9); Albumin/Globulin Ratio 2.45 Ratio (1.60-3.17); Alkaline Phosphatase 88 U/L (41-126); BUN/Creat Ratio 11.44 Ratio (12.00-20.00); Blood Urea Nitrogen 10.3 mg/dL (9.0-27.0); Calcium 10.2 mg/dL (8.7-10.3); Carbon Dioxide 24.7 mmol/L (21.6-31.8); Chloride 103 mmol/L (96-109); Glucose 87 mg/dL (70-110); Potassium 4.5 mmol/L (3.5-5.5); Sodium 141 mmol/L (135-145); Total Bilirubin 0.4 mg/dL (0.3-1.2); Total Protein 6.9 g/dL (6.2-8.2)
[2024-07-23 16:15] LABS: Appearance,Urine Cloudy (Clear); Bilirubin,Urine Negative (Negative); Blood,Urine Trace (Negative); Color,Urine Yellow (Yellow); Ketones,Urine Negative (Negative); Nitrite,Urine Negative (Negative); Specific Gravity,Urine 1.003 (1.001-1.030); Urobilinogen,Urine 0.2 E.U./DL
[2024-07-23 16:38] LABS: Bacteria,Urine Trace (None Seen)
== END | disposition home or self-care (01) ==
LOC: LABWHC1 10:28
PROVIDERS: ATTEND Internal Medicine
DX: I10 Essential (primary) hypertension (principal); E78.2 Mixed hyperlipidemia
CPT/HCPCS: 36415; 80053; 80061; 81001; 82550; 83036; 83735; 84443; 84550; 85025

== ENCOUNTER → 2024-11-15 | Outpatient (CLI) | payer BC ==
--- NOTE | 2024-11-15 17:48 | MM ---
Reason for Exam: Screening (asymptomatic). Last mammogram was performed 1 year(s) and 1 month(s) ago. Patient History: Menarche at age 14. Patient has no children. Postmenopausal. Other cancer, age 50. Other cancer, age 50. Hormonal Contraceptives for 30 years from age 20 until age 50. Risk Values: Amaya 5 year model risk: 1.2%. NCI Lifetime model risk: 8.5%. Prior Study Comparison: 05/31/2018 Bilateral Screening Mammogram, [facility]. 09/11/2019 Bilateral Screening Mammogram, [facility]. 09/22/2020 Bilateral Screening Mammogram, [facility]. 09/23/2021 Bilateral MG 3D screening mammo w/cad, [facility]. 09/26/2022 Bilateral MG 3D screening mammo w/cad, [facility]. 04/21/2023 Left MG 3D diag mammo w/cad LT, [facility]. 10/25/2023 Bilateral MG 3D diag mammo w/cad NATHAN, [facility]. Tissue Density: The breasts are heterogeneously dense, which may obscure small masses. Findings: Analyzed By CAD. Asymmetric densities left MLO view are unchanged. There is no suspicious group of microcalcifications or new suspicious mass in either breast. Overall Assessment: Benign, BI-RAD 2 Management: Screening Mammogram of both breasts in 1 year. Patient should continue monthly self-breast exams. A clinical breast exam by your physician is recommended on an annual basis. This exam should not preclude additional follow-up of suspicious palpable abnormalities. Note on Amaya scores and lifetime risk: 1. A Amaya score greater than 3% is considered moderate risk. If this is the case, consider specialist referral to assess eligibility for a risk reducing agent. 2. If overall lifetime risk for the development of breast cancer is 20% or higher, the patient may qualify for future screening with alternating mammogram and breast MRI. [facility], , 11/15/2024 5:45 PM. Electronically signed and approved by: Veronica Nogueira M.D. Radiologist
== END | disposition home or self-care (01) ==
LOC: RADMAMWWP 09:22
PROVIDERS: ATTEND Surgery
DX: Z12.31 Encounter for screening mammogram for malignant neoplasm of breast (principal); R92.333 Mammographic heterogeneous density, bilateral breasts; Z78.0 Asymptomatic menopausal state; Z92.0 Personal history of contraception
CPT/HCPCS: 77063; 77067